=== PATIENT | male | born 1985 | race Caucasian/White ===

== ENCOUNTER 2019-05-31 09:07 | Emergency (ER) | payer OTHER, SELFPAY ==
[2019-05-31 09:30] VITALS: BP 145/88; PULSE 75; RESP 20; TEMP 36.6; O2SAT 98
--- NOTE | 2019-05-31 09:39 | ED.EAR ---
HPI - Ear Problem General Chief complaint: Ear Stated complaint: Poss Ear Infection Time Seen by Provider: 05/31/19 09:39 Source: patient and family Mode of arrival: ambulatory History of Present Illness HPI Narrative: Patient presents with bilateral ear pain and the feeling of fullness in both ears. Patient denies any fever no shortness of breath and no cough. Patient states last week he had nasal congestion and drainage which has since resolved. Patient denies any sore throat. Patient states he is a normally healthy individual. Patient has not taken thing [id number] for symptoms. MD Complaint: ear pain Location: bilateral Duration: constant Severity: mild Related Data Allergies Allergy/AdvReac Type Severity Reaction Status Date / Time No Known Allergies Allergy Unverified 05/31/19 09:43 Review of Systems Review of Systems: Narrative: CONSTITUTIONAL: Denies fever, chills, or sweats. EYES: Denies visual changes, redness, or discharge. ENT: Denies rhinorrhea, congestion, sore throat, reports ear pain CARDIOVASCULAR: Denies chest pain, palpitations, or edema. RESPIRATORY: Denies cough or dyspnea. GASTROINTESTINAL: Denies abdominal pain, nausea, vomiting, or diarrhea. GENITOURINARY: Denies dysuria or hematuria. SKIN: Denies rash or itching. MUSCULOSKELETAL: Denies back pain, joint pain, or myalgia. NEUROLOGIC: Denies headache, numbness, or weakness. PSYCHIATRIC: Denies anxiety or depression. PMFSH Comments At time of signature, agree with nursing past medical, surgical, social and family history. There is no relevant family history pertinent to the presenting complaint Exam Narrative: Exam Narrative: GENERAL: Well-appearing, well-nourished, and in no acute distress. HEAD: Normocephalic, atraumatic. EYES: PERRLA and EOMI. ENT: Nares clear, no rhinorrhea or epistaxis. Mucous membranes moist. Bilateral erythremia to both canals bilateral TM dullness mild postnasal drainage NECK: Supple. CHEST: Clear to auscultation. No respiratory distress. HEART: Regular rate and rhythm. No murmur heard. Normal peripheral pulses. ABDOMEN: Soft, nontender, nondistended, normal active bowel sounds. EXTREMITIES: Normal range of motion. No edema. SKIN: Warm, dry, no rash. NEURO: No focal deficits. Alert and oriented x3. [place] Coma Scale Eye Opening: Spontaneous 4 [place] Coma Scale Motor: Obeys Commands 6 [place] Coma Scale Verbal: Oriented 5 [place] Coma Scale Total 15 Course Vital Signs Vital signs: Vital Signs Temperature 36.6 C 05/31/19 09:30 Pulse Rate 75 05/31/19 09:30 Respiratory Rate 20 05/31/19 09:30 Blood Pressure 145/88 H 05/31/19 09:30 Pulse Oximetry 98 05/31/19 09:30 Temperature 36.6 C 05/31/19 09:30 Pulse Rate 75 05/31/19 09:30 Respiratory Rate 20 05/31/19 09:30 Blood Pressure 145/88 H 05/31/19 09:30 Pulse Oximetry 98 05/31/19 09:30 Please CATY schedule a followup visit with your personal physician for further evaluation and treatment. Including recheck and discussion of your blood pressure. If your symptoms persist, change or worsen significantly before you can contact your personal physician then please, without delay, go to the emergency department for further evaluation Medical Decision Making Differential Diagnosis Differential Diagnosis: Otitis media, otitis externa, eustachian tube dysfunction, upper respiratory infection, sinusitis Vital Signs Vital Signs: Vital Signs Temperature 36.6 C 05/31/19 09:30 Pulse Rate 75 05/31/19 09:30 Respiratory Rate 05/31/19 09:30 Blood Pressure 145/88 H 05/31/19 09:30 Pulse Oximetry 98 05/31/19 09:30 Temperature 36.6 C 05/31/19 09:30 Pulse Rate 75 05/31/19 09:30 Respiratory Rate 05/31/19 09:30 Blood Pressure 145/88 H 05/31/19 09:30 Pulse Oximetry 98 05/31/19 09:30 Please [facility] schedule a followup visit with your personal physician for further evaluation and treatment. Including recheck and
== END 2019-05-31 09:49 | disposition home or self-care (01) ==
PROVIDERS: Emergency Provider Nurse Practitioner Family; PCP Internal Medicine
DX: H66.003 Acute suppurative otitis media without spontaneous rupture of ear drum, bilateral (principal)
CPT/HCPCS: 99213; G0463

== ENCOUNTER 2019-09-13 13:00 | Emergency (ER) | payer OTHER, SELFPAY ==
[2019-09-13 13:05] VITALS: BP 144/91; PULSE 106; RESP 20; TEMP 36.6; O2SAT 100
--- NOTE | 2019-09-13 13:08 | ED.URI ---
HPI - URI/Sore Throat General Chief Complaint: Upper Respiratory Infection Stated Complaint: sinus drainage/headache/chills Time Seen by Provider: 09/13/19 13:08 Source: patient and RN notes reviewed History of Present Illness HPI Narrative: Patient is a 33-year-old male that presents the urgent care with complaints of sinus drainage, intermittent chills and headache. Patient states that he has had some facial pressure due to sinus drainage. Denies of any sore throat, nausea, vomiting, fever. Patient states his symptoms started yesterday and he knows these are typical due to weather change . Patient is requesting a work release because he did not go to work. Patient is aware that work release notes are not available at this time due to inability to rule out coronavirus. Patient is also aware that there is no necessary need for coronavirus testing based on his symptoms at this time. Patient is use Tylenol and ibuprofen for the headaches, which have improved. Otherwise, patient has not used anything stad-cyr-cqmktby for his symptoms. No other acute complaints. No acute distress noted. Patient read the plan of care. Related Data Home Medications Medication Instructions Recorded Confirmed No Home Medications 09/13/19 09/13/19 Allergies Allergy/AdvReac Type Severity Reaction Status Date / Time No Known Allergies Allergy Verified 09/13/19 13:16 Review of Systems Review of Systems: Narrative: CONSTITUTIONAL: Reports of chills without known fever EYES: Denies visual changes, redness, or discharge. ENT: Reports of rhinorrhea, congestion, sinus pressure CARDIOVASCULAR: Denies chest pain, palpitations, or edema. RESPIRATORY: Denies cough or dyspnea. GASTROINTESTINAL: Denies abdominal pain, nausea, vomiting, or diarrhea. GENITOURINARY: Denies dysuria or hematuria. SKIN: Denies rash or itching. MUSCULOSKELETAL: Denies back pain, joint pain, or myalgia. NEUROLOGIC: Reports of intermittent headaches All other systems reviewed are negative, except as documented in HPI. PMFSH Comments At the time of my signature, I reviewed and agree with the nursing past medical, surgical, social, and family history. There is no relevant family history pertinent to the patient complaint. Exam Narrative: Exam Narrative: GENERAL: This is a well-nourished, well-developed patient, in no apparent distress. HEAD: normocephalic, atraumatic. EYES: PERRL. Sclera clear/white. Vision is grossly intact. EARS: External ears normal, auditory canals clear and without drainage, TMs normal without perforation. Hearing grossly intact. NOSE: External nose normal with no obvious nasal discharge, nares without redness, no rhinorrhea. THROAT: Mucous membranes moist, posterior pharynx clear. Mild postnasal drainage NECK: Neck supple CARDIOVASCULAR: Regular rate and rhythm without murmurs, gallops, or rubs. RESPIRATORY: Clear to auscultation. Breath sounds equal bilaterally. No wheezes, rales, or rhonchi. SKIN: warm, intact with no suspicious lesions or rash, good texture and turgor. NEURO: awake, alert, and oriented to person, place and time. There were no obvious focal neurologic abnormalities. EXTREMITIES: No clubbing, cyanosis, or edema. Course Vital Signs Vital signs: Vital Signs Temperature 97.9 F 09/13/19 13:05 Pulse Rate 106 H 09/13/19 13:05 Respiratory Rate 20 09/13/19 13:05 Blood Pressure 144/91 H 09/13/19 13:05 Pulse Oximetry 100 09/13/19 13:05 Temperature 97.9 F 09/13/19 13:05 Pulse Rate 106 H 09/13/19 13:05 Respiratory Rate 20 09/13/19 13:05 Blood Pressure 144/91 H 09/13/19 13:05 Pulse Oximetry 100 09/13/19 13:05 Reviewed?patient is informed that they may have pre-hypertension or hypertension based on a blood pressure reading in the department. I recommend the patient call the primary care provider listed on their discharge instructions or a physician of their choice this week to arrange follow-up for further evaluati
== END 2019-09-13 13:24 | disposition home or self-care (01) ==
PROVIDERS: Emergency Provider Nurse Practitioner Family; PCP Internal Medicine
DX: J00 Acute nasopharyngitis [common cold] (principal); J01.90 Acute sinusitis, unspecified
CPT/HCPCS: 99211; G0463

== ENCOUNTER 2021-09-22 15:36 | Emergency (ER) | payer OTHER, SELFPAY ==
[2021-09-22 15:47] VITALS: BP 137/76; PULSE 85; RESP 18; TEMP 37; O2SAT 98
--- NOTE | 2021-09-22 16:27 | ED.URI ---
HPI - URI/Sore Throat General Chief Complaint: Upper Respiratory Infection Stated Complaint: Sore Throat Time Seen by Provider: 09/22/21 16:20 Source: patient, RN notes reviewed and old records reviewed Mode of arrival: ambulatory Limitations: no limitations History of Present Illness HPI Narrative: 35-year-old male who presents to [facility] with 1 day history of sore throat, some nasal congestion, denies any ear pain or any cough. Patient has been vaccinated for COVID and has had Flu shot,denies any fevers or any body aches. Patient has not taken any OTC medications for his discomfort. MD elicited complaint: sore throat Related Data Home Medications Medication Instructions Recorded Confirmed omeprazole 20 mg PO DAILY 09/22/21 09/22/21 tadalafil 20 mg PO PRN 09/22/21 09/22/21 Allergies Allergy/AdvReac Type Severity Reaction Status Date / Time No Known Allergies Allergy Verified 09/22/21 15:50 Review of Systems Review of Systems: CONSTITUTIONAL: Denies fever, chills, or sweats. EYES: Denies visual changes, redness, or discharge. ENT: Denies rhinorrhea, some nasal congestion,positive sore throat, no otalgia. CARDIOVASCULAR: Denies chest pain, palpitations, or edema. RESPIRATORY: Denies cough or dyspnea. GASTROINTESTINAL: Denies abdominal pain, nausea, vomiting, or diarrhea. GENITOURINARY: Denies dysuria or hematuria. SKIN: Denies rash or itching. MUSCULOSKELETAL: Denies back pain, joint pain, or myalgia. NEUROLOGIC: Denies headache, numbness, or weakness. PSYCHIATRIC: Denies anxiety or depression. All systems reviewed & are unremarkable except as noted in HPI and below PMFSH Past Medical History Medical History (Updated 09/23/21 @ 11:03 by Maribel Barrios NP) ADD (attention deficit disorder) GERD (gastroesophageal reflux disease) History of sinus problem Surgical History Surgical History (Updated 09/23/21 @ 11:02 by Maribel Barrios NP) History of appendectomy Social History Social History (Updated 09/23/21 @ 11:01 by Maribel Barrios NP) Smoking status: Current every day smoker Tobacco type: e-cigarettes/vaping Additional smoking assessment comments: quit cigarettes 2009 smoked 16 years Alcohol intake: current Alcohol use details: social Substance use: unknown Comments At time of signature, agree with nursing past medical, surgical, social and family history. There is no relevant family history pertinent to the presenting complaint Exam Narrative: GENERAL: Well-appearing, well-nourished,obese and in no acute distress. HEAD: Normocephalic, atraumatic. EYES: PERRLA and EOMI. ENT: Nares with mild redness clear rhinorrhea no epistaxis. Mucous membranes moist.Tm's normal with good light reflex, throat red with white exudates on acutely enlarged red tonsils NECK: Supple.lymphadenopathy CHEST: Clear to auscultation. No respiratory distress.SAO2 98% on room air, no dyspnea or any tachypnea noted. HEART: Regular rate and rhythm. No murmur heard. Normal peripheral pulses. ABDOMEN: Soft, nontender, nondistended, normal active bowel sounds. EXTREMITIES: Normal range of motion. No edema. SKIN: Warm, dry, no rash. NEURO: No focal deficits. Alert and oriented x3. Course Course Level of Care: Express Care Visit Vital Signs Vital signs: Vital Signs Temperature 37.0 C 09/22/21 15:47 Pulse Rate 85 09/22/21 15:47 Respiratory Rate 18 09/22/21 15:47 Blood Pressure 137/76 09/22/21 15:47 Pulse Oximetry 98 09/22/21 15:47 Temperature 37.0 C 09/22/21 15:47 Pulse Rate 85 09/22/21 15:47 Respiratory Rate 18 09/22/21 15:47 Blood Pressure 137/76 09/22/21 15:47 Pulse Oximetry 98 09/22/21 15:47 MDM - URI/Sore Throat Differential Diagnosis Differential diagnosis: Likely upper respiratory infection, pharyngitis and other (Exudative tonsillitis) Medical Records Attestation: I reviewed the patient's medical records. Lab Data Attestation: I reviewed the patien
== END 2021-09-22 16:45 | disposition home or self-care (01) ==
PROVIDERS: Emergency Provider Registered Nurse
DX: J03.90 Acute tonsillitis, unspecified (principal); F17.290 Nicotine dependence, other tobacco product, uncomplicated; K21.9 Gastro-esophageal reflux disease without esophagitis
CPT/HCPCS: 87081; 87880; 99213; G0463

== ENCOUNTER 2022-10-01 11:35 | Emergency (ER) | payer OTHER, SELFPAY ==
--- NOTE | ~2022-10-01 | XR_ITS ---
EXAMINATION: XR chest 2V DATE: 10/01/2022 12:33 INDICATION: Cough. Shortness of breath with exertion. TECHNIQUE: Frontal and lateral views of the chest were obtained. COMPARISON: None. FINDINGS: The chest demonstrates clear lungs without pneumonia, pleural effusion, or pneumothorax. Th e heart size is normal. IMPRESSION: 1. No acute cardiopulmonary disease. Reviewed, dictated and finalized at location A.
[2022-10-01 11:40] VITALS: BP 146/81; PULSE 78; RESP 16; TEMP 36.9; O2SAT 100
--- NOTE | 2022-10-01 11:59 | ED.URI ---
HPI - URI/Sore Throat General Chief Complaint: Upper Respiratory Infection Stated Complaint: cough/ had covid Time Seen by Provider: 10/01/22 12:14 Source: patient and RN notes reviewed Mode of arrival: ambulatory Limitations: no limitations History of Present Illness HPI Narrative: 36-year-old male presents with concern for 2 week history of postnasal drainage, productive cough, shortness of breath, headache, diarrhea. Reports his tested positive for COVID 1 week ago, he had a negative COVID test at that time. Reports he has been taking several hnha-eby-[id number] medications without relief. Reports he vapjay VALDEZ elicited complaint: cough Related Data Home Medications Medication Instructions Recorded Confirmed omeprazole 20 mg capsule,delayed 20 mg PO DAILY 09/22/21 10/01/22 release tadalafil 20 mg tablet 20 mg PO PRN 09/22/21 10/01/22 Allergies Allergy/AdvReac Type Severity Reaction Status Date / Time No Known Allergies Allergy Verified 10/01/22 11:42 Review of Systems Review of Systems: CONSTITUTIONAL: Reports malaise. Denies chills, sweats, or fever. EYES: Denies visual changes, redness, or discharge. ENT: Reports rhinorrhea, postnasal drainage. Denies congestion, sinus pain, otalgia and sore throat. CARDIOVASCULAR: Denies chest pain, palpitations, or edema. RESPIRATORY: Reports productive cough, occasional dyspnea, mid back pain with coughing. GASTROINTESTINAL: Denies abdominal pain, nausea, vomiting. Reports diarrhea SKIN: Denies rash or itching. MUSCULOSKELETAL: Denies myalgia. NEUROLOGIC: Reports headache. All systems reviewed & are unremarkable except as noted in HPI and below PMFSH Past Medical History Medical History (Updated 10/01/22 @ 12:43 by Dedra Al NP) ADD (attention deficit disorder) GERD (gastroesophageal reflux disease) History of sinus problem Surgical History Surgical History (Updated 09/23/21 @ 11:02 by Maribel Barrios NP) History of appendectomy Social History Social History (Updated 09/23/21 @ 11:01 by Maribel Barrios NP) Smoking status: Current every day smoker Tobacco type: e-cigarettes/vaping Additional smoking assessment comments: quit cigarettes 2009 smoked 16 years Alcohol intake: current Alcohol use details: social Substance use: unknown Comments At time of signature, agree with nursing past medical, surgical, social and family history. There is no relevant family history pertinent to the presenting complaint Exam Narrative: GENERAL: Nontoxic appearing and in no acute distress. HEAD: Normocephalic EYES: PERRLA, conjunctivae clear ENT: Nares clear, turbinates edematous and erythematous. Mucous membranes moist. TM pearly beasley with dull light reflex bilaterally; no tragal tenderness. Oropharynx erythematous without lesions. Tonsils not enlarged and without exudate, no drooling, no hoarseness, no trismus, uvula midline. NECK: Supple. No lymphadenopathy CHEST: Clear to auscultation, breath sounds equal. No wheezing, rhonchi, rales, or stridor. No respiratory distress, speaks in full sentences. Cough noted HEART: Regular rate and rhythm. No murmur heard. SKIN: Warm, dry, no rash. NEURO: Alert and oriented x3. PSYCH: Normal mood and affect Course Course Emergency Course: Patient is aware of diagnosis, understands and agrees to treatment plan. Anticipatory guidance given. Patient agrees to follow-up as directed and is aware of reasons to seek care at the emergency department. Portions of this record may have been created with voice recognition software Level of Care: Express Care Visit Vital Signs Vital signs: Vital Signs Temperature 98.4 F 10/01/22 11:40 Pulse Rate 78 10/01/22 11:40 Respiratory Rate 16 10/01/22 11:40 Blood Pressure 146/81 H 10/01/22 11:40 Pulse Oximetry 100 10/01/22 11:40 Oxygen Delivery Room Air 10/01/22 11:40 Temperature 98.4 F 10/01/22 11:40 Pulse Rate 78
== END 2022-10-01 12:45 | disposition home or self-care (01) ==
PROVIDERS: Emergency Provider Nurse Practitioner; PCP Physician Assistant
DX: J32.9 Chronic sinusitis, unspecified (principal); J40 Bronchitis, not specified as acute or chronic; Z20.822 Contact with and (suspected) exposure to COVID-19; F17.290 Nicotine dependence, other tobacco product, uncomplicated; K21.9 Gastro-esophageal reflux disease without esophagitis
CPT/HCPCS: 71046; 87081; 87426; 87804; 87880; 99213; C9803; G0463

== ENCOUNTER 2022-11-03 13:25 | Emergency (ER) | payer OTHER, SELFPAY ==
[2022-11-03 13:39] VITALS: BP 153/84; PULSE 73; RESP 16; TEMP 37.3; O2SAT 98
--- NOTE | 2022-11-03 13:47 | ED.SKABFB ---
HPI - Skin/Abscess/Foreign Bdy General Chief complaint: Skin/Abscess/Foreign Body Stated complaint: blisters on right hand Source: patient and RN notes reviewed History of Present Illness HPI narrative: 36-year-old male presents to urgent care with complaints of 3 blisters to his right hand. Patient states he obtained these blisters by opening plastic, 2 L, soda bottles on Thursday night. Pt states he had a collection of them and he was opening them, some harder to open than others. Pt is also reporting some swelling to the area of his right hand. Denies any fevers, chills, vomiting, or other complaints. Patient has applied triple antibiotic ointment to the areas. Related Data Home Medications Medication Instructions Recorded Confirmed omeprazole 20 mg capsule,delayed 20 mg PO DAILY 09/22/21 10/01/22 release tadalafil 20 mg tablet 20 mg PO PRN 09/22/21 10/01/22 Allergies Allergy/AdvReac Type Severity Reaction Status Date / Time No Known Allergies Allergy Verified 10/01/22 11:42 Review of Systems Review of Systems: CONSTITUTIONAL: Denies fever, chills, or sweats. EYES: Denies visual changes, redness, or discharge. ENT: Denies otalgia and sore throat CARDIOVASCULAR: Denies chest pain, palpitations, or edema. RESPIRATORY: Denies cough or dyspnea. GASTROINTESTINAL: Denies abdominal pain, nausea, vomiting, or diarrhea. GENITOURINARY: Denies dysuria or hematuria. SKIN: Blisters right hand MUSCULOSKELETAL: Denies back pain, joint pain, or myalgia. NEUROLOGIC: Denies headache, numbness, or weakness. Pertinent positives per HPI. [facility] Past Medical History Medical History (Updated 11/03/22 @ 13:49 by Yamel Lua APRN) ADD (attention deficit disorder) GERD (gastroesophageal reflux disease) History of sinus problem Surgical History Surgical History (Updated 09/23/21 @ 11:02 by Maribel Barrios NP) History of appendectomy Social History Social History (Updated 09/23/21 @ 11:01 by Maribel Barrios NP) Smoking status: Current every day smoker Tobacco type: e-cigarettes/vaping Additional smoking assessment comments: quit cigarettes 2009 smoked 16 years Alcohol intake: current Alcohol use details: social Substance use: unknown Comments At the time of my signature, I reviewed and agree with the nursing past medical, surgical, social, and family history. There is no relevant family history pertinent to the patient complaint. Exam Narrative: GENERAL: This is a well-nourished, well-developed patient, in no apparent distress. HEAD: normocephalic, atraumatic. EYES: Sclera clear/white. Vision is grossly intact. EARS: External ears normal, auditory canals clear and without drainage. Hearing grossly intact. NOSE: External nose normal with no obvious nasal discharge, nares without redness, no rhinorrhea. THROAT: Mucous membranes moist, posterior pharynx clear. NECK: Neck supple, non-tender without lymphadenopathy, masses or thyromegaly. CARDIOVASCULAR: Regular rate RESPIRATORY: No respiratory distress SKIN: 3 lesions to right palmar hand, located to volar side of thumb and and 2 to thenar aspect. no drainage or surrounding erythema. each lesion appears to be approximately 1-1.5 cm, consistent to open blisters. NEURO: awake, alert, and oriented to person, place and time. There were no obvious focal neurologic abnormalities. EXTREMITIES: Mild swelling to right thumb and thenar aspect of hand. Course Course Level of Care: Express Care Visit Vital Signs Vital signs: Vital Signs Temperature 99.2 F 11/03/22 13:39 Pulse Rate 73 11/03/22 13:39 Respiratory Rate 16 11/03/22 13:39 Blood Pressure 153/84 H 11/03/22 13:39 Pulse Oximetry 98 11/03/22 13:39 Oxygen Delivery Room Air 11/03/22 13:39 Temperature 99.2 F 11/03/22 13:39 Pulse Rate 73 11/03/22 13:39 Respiratory Rate 16 11/03/22 13:39 Blood Pressure 153/84 H 11/03/22 13:39 Pulse Oximetry 98
== END 2022-11-03 13:56 | disposition home or self-care (01) ==
PROVIDERS: Emergency Provider Nurse Practitioner Family; PCP Physician Assistant
DX: S60.521A Blister (nonthermal) of right hand, initial encounter (principal); X58.XXXA Exposure to other specified factors, initial encounter; K21.9 Gastro-esophageal reflux disease without esophagitis; F17.290 Nicotine dependence, other tobacco product, uncomplicated
CPT/HCPCS: 99213; G0463

== ENCOUNTER 2022-12-16 13:37 | Emergency (ER) | payer OTHER, SELFPAY ==
[2022-12-16 13:47] VITALS: BP 143/89; PULSE 99; RESP 16; TEMP 36.7; O2SAT 100
--- NOTE | 2022-12-16 14:26 | ED.GENADULT ---
HPI - General Adult General Chief complaint: Upper Respiratory Infection Stated complaint: Vomiting,Diarrhea,Headache Source: patient Mode of arrival: ambulatory Limitations: no limitations History of Present Illness HPI narrative: Patient presents for evaluation of sick symptoms. Symptom onset yesterday. Symptoms include body aches, nausea, 1 episode of vomiting, diarrhea, generalized body aches, mild SOB, and occasional cough. Denies sore throat and otalgia. His partner has similar symptoms. He does use an electronic cigarette. He denies other concerns. Related Data Home Medications Medication Instructions Recorded Confirmed omeprazole 20 mg capsule,delayed 20 mg PO DAILY 09/22/21 12/16/22 release tadalafil 20 mg tablet 20 mg PO PRN 09/22/21 12/16/22 Allergies Allergy/AdvReac Type Severity Reaction Status Date / Time No Known Allergies Allergy Verified 10/01/22 11:42 Review of Systems Review of Systems: CONSTITUTIONAL: Denies fever, chills, or sweats. EYES: Denies visual changes, redness, or discharge. ENT: Reports sore throat. denies rhinorrhea, congestion, or otalgia. CARDIOVASCULAR: Denies chest pain, palpitations, or edema. RESPIRATORY: Reports shortness of breath and occasional cough GASTROINTESTINAL: Reports nausea, 1 episode of vomiting, diarrhea GENITOURINARY: Denies dysuria or hematuria. SKIN: Denies rash or itching. MUSCULOSKELETAL: Reports generalized body ache NEUROLOGIC: Denies headache, numbness, dizziness, or weakness. PSYCHIATRIC: Denies anxiety or depression. [facility] Past Medical History Medical History ADD (attention deficit disorder) GERD (gastroesophageal reflux disease) History of sinus problem Surgical History Surgical History History of appendectomy Family History Family History Mother Family history non-contributory Social History Social History Smoking status: Current every day smoker Tobacco type: e-cigarettes/vaping Additional smoking assessment comments: quit cigarettes 2009 smoked 16 years Alcohol intake: current Alcohol use details: social Substance use: unknown Gender identity (if verbalized by the patient): Male Exam Narrative: GENERAL: Well-appearing, well-nourished, and in no acute distress. HEAD: Normocephalic, atraumatic. EYES: PERRLA and EOMI. ENT: Nares clear, no rhinorrhea or epistaxis. Mucous membranes moist. Oropharynx without tonsillar hypertrophy exudate or other lesions. Bilateral TMs pearly beasley nonbulging NECK: Supple. No adenopathy or masses. No carotid bruits or JVD CHEST: Clear to auscultation. No respiratory distress. No wheezes rales or rhonchi HEART: Regular rate and rhythm. No murmur heard. Normal peripheral pulses. ABDOMEN: Soft, nontender, nondistended, normal active bowel sounds. EXTREMITIES: Normal range of motion. No edema. SKIN: Warm, dry, no rash. NEURO: No focal deficits. Alert and oriented x3. PSYCH: Normal mood and affect. Course Course Emergency Course: This is a 37-year-old male presented for evaluation of sick symptoms. Testing here today was negative. Exam is consistent with acute viral syndrome. Increase hydration. Yvju-mwv-votnptb agents for symptom management. Advised smoking cessation. Follow up with primary provider. Go to the ER for worsening symptoms. Patient in agreement with plan of care. Level of Care: Express Care Visit Vital Signs Vital signs: Vital Signs Temperature 36.7 C 12/16/22 13:47 Pulse Rate 99 12/16/22 13:47 Respiratory Rate 16 12/16/22 13:47 Blood Pressure 143/89 H 12/16/22 13:47 Pulse Oximetry 100 12/16/22 13:47 Oxygen Delivery Room Air 12/16/22 13:47 Temperature 36.7 C 12/16/22 13:47 Pul
== END 2022-12-16 15:02 | disposition home or self-care (01) ==
LOC: EXPBETH 13:39
PROVIDERS: Emergency Provider Nurse Practitioner; PCP Physician Assistant
DX: B34.9 Viral infection, unspecified (principal); K21.9 Gastro-esophageal reflux disease without esophagitis; Z20.822 Contact with and (suspected) exposure to COVID-19
CPT/HCPCS: 87426; 99213; C9803; G0463

== ENCOUNTER 2022-12-31 08:26 | Emergency (ER) | payer OTHER, SELFPAY ==
[2022-12-31 08:42] VITALS: BP 130/86; PULSE 89; RESP 18; TEMP 36.6; O2SAT 100
--- NOTE | 2022-12-31 09:09 | ED.URI ---
HPI - URI/Sore Throat General Chief Complaint: Upper Respiratory Infection Stated Complaint: fever/aches/fatigue Time Seen by Provider: 12/31/22 09:09 Source: patient Mode of arrival: ambulatory Limitations: no limitations History of Present Illness HPI Narrative: 37-year-old male presents with complaint of nasal congestion, sore throat, fever, body aches, cough for 3 days. Reports fever yesterday was 102 F. Denies nausea vomiting diarrhea. No chest pain or shortness of breath. Patient reports that he missed 2 days of work and needs a work note. All systems reviewed and negative except as noted above. Related Data Home Medications Medication Instructions Recorded Confirmed omeprazole 20 mg capsule,delayed 20 mg PO DAILY 09/22/21 12/16/22 release tadalafil 20 mg tablet 20 mg PO PRN 09/22/21 12/16/22 Allergies Allergy/AdvReac Type Severity Reaction Status Date / Time No Known Allergies Allergy Verified 10/01/22 11:42 Review of Systems Review of Systems: CONSTITUTIONAL: Reports fever, chills, or sweats. EYES: Denies visual changes, redness, or discharge. ENT: Reports rhinorrhea, congestion, sore throat. Denies otalgia. CARDIOVASCULAR: Denies chest pain, palpitations, or edema. RESPIRATORY: Reports cough. Denies dyspnea. GASTROINTESTINAL: Denies abdominal pain, nausea, vomiting, or diarrhea. GENITOURINARY: Denies dysuria or hematuria. SKIN: Denies rash or itching. MUSCULOSKELETAL: Denies back pain, joint pain, or myalgia. NEUROLOGIC: Denies headache, numbness, or weakness. PSYCHIATRIC: Denies anxiety or depression. All other systems reviewed are negative, except as documented in HPI. [facility] Past Medical History Medical History ADD (attention deficit disorder) GERD (gastroesophageal reflux disease) History of sinus problem Surgical History Surgical History History of appendectomy Family History Family History Mother Family history non-contributory Social History Social History Smoking status: Current every day smoker Tobacco type: e-cigarettes/vaping Additional smoking assessment comments: quit cigarettes 2010 smoked 16 years Alcohol intake: current Alcohol use details: social Substance use: unknown Gender identity (if verbalized by the patient): Male Comments At time of signature, agree with nursing past medical, surgical, social and family history. There is no relevant family history pertinent to the presenting complaint. Exam Narrative: GENERAL: This is a well-nourished, well-developed patient, in no apparent distress. HEAD: normocephalic, atraumatic. EYES: PERRL. Sclera clear/white. Vision is grossly intact. EARS: External ears normal, auditory canals clear and without drainage, TMs normal without perforation. Hearing grossly intact. NOSE: External nose normal with clear nasal drainage, mild congestion. Mild erythema to both nares without swelling. THROAT: Mucous membranes moist, erythema to posterior pharynx without swelling or exudates. NECK: Neck supple, non-tender without lymphadenopathy, masses or thyromegaly. CARDIOVASCULAR: Regular rate and rhythm without murmurs, gallops, or rubs. RESPIRATORY: Clear to auscultation. Breath sounds equal bilaterally. No wheezes, rales, or rhonchi. SKIN: warm, Dry, intact with no suspicious lesions or rash, good texture and turgor. NEURO: awake, alert, and oriented to person, place and time. There were no obvious focal neurologic abnormalities. EXTREMITIES: No joint tenderness, effusion, or edema noted. Course Course Level of Care: Express Care Visit Vital Signs Vital signs: Vital Signs Temperature 36.6 C 12/31/22 08:42 Pulse Rate 89 12/31/22 08:42 Respiratory Rate 18
== END 2022-12-31 09:24 | disposition home or self-care (01) ==
PROVIDERS: Emergency Provider Nurse Practitioner Family; PCP Physician Assistant
DX: J06.9 Acute upper respiratory infection, unspecified (principal); Z20.822 Contact with and (suspected) exposure to COVID-19; F17.290 Nicotine dependence, other tobacco product, uncomplicated; K21.9 Gastro-esophageal reflux disease without esophagitis
CPT/HCPCS: 87081; 87426; 87880; 99213; C9803; G0463

== ENCOUNTER 2023-01-12 08:54 | Emergency (ER) | payer OTHER, SELFPAY ==
[2023-01-12 09:26] VITALS: BP 142/92; PULSE 74; RESP 20; TEMP 36.9; O2SAT 98
--- NOTE | 2023-01-12 09:57 | ED.URI ---
HPI - URI/Sore Throat General Chief Complaint: Upper Respiratory Infection Stated Complaint: cough Source: patient and RN notes reviewed History of Present Illness HPI Narrative: 37 yo M presents to urgent care with complaints of a productive cough and congestion x 2 weeks. Pt reports sinus pressure and BOLDEN. Denies any fevers, chills, vomiting, chest pain, or SOB. Pt has been taking mucinex, humidifiers, and other OTC meds without relief. Related Data Home Medications Medication Instructions Recorded Confirmed omeprazole 20 mg capsule,delayed 20 mg PO DAILY 09/22/21 01/12/23 release tadalafil 20 mg tablet 20 mg PO PRN 09/22/21 01/12/23 Allergies Allergy/AdvReac Type Severity Reaction Status Date / Time No Known Allergies Allergy Verified 10/01/22 11:42 Review of Systems Review of Systems: Pertinent positives and pertinent negatives per HPI. [facility] Past Medical History Medical History ADD (attention deficit disorder) GERD (gastroesophageal reflux disease) History of sinus problem Surgical History Surgical History History of appendectomy Family History Family History Mother Family history non-contributory Social History Social History Smoking status: Current every day smoker Tobacco type: e-cigarettes/vaping Additional smoking assessment comments: quit cigarettes 2010 smoked 16 years Alcohol intake: current Alcohol use details: social Substance use: unknown Gender identity (if verbalized by the patient): Male Comments At the time of my signature, I reviewed and agree with the nursing past medical, surgical, social, and family history. There is no relevant family history pertinent to the patient complaint. Exam Narrative: GENERAL: This is a well-nourished, well-developed patient, in no apparent distress. HEAD: normocephalic, atraumatic. EYES: Sclera clear/white. Vision is grossly intact. EARS: External ears normal, auditory canals clear and without drainage, TMs normal without perforation. Hearing grossly intact. NOSE: External nose normal with no obvious nasal discharge, nares without redness, no rhinorrhea. THROAT: Mucous membranes moist, posterior pharynx clear. NECK: Neck supple, non-tender without lymphadenopathy, masses or thyromegaly. CARDIOVASCULAR: Regular rate and rhythm without murmurs, gallops, or rubs. RESPIRATORY: Clear to auscultation. Breath sounds equal bilaterally. No wheezes, rales, or rhonchi. SKIN: warm, intact with no suspicious lesions or rash, good texture and turgor. NEURO: awake, alert, and oriented to person, place and time. There were no obvious focal neurologic abnormalities. EXTREMITIES: No clubbing, cyanosis, or edema. No joint tenderness, effusion, or edema noted. BACK: Nontender without deformity or crepitus. No flank tenderness. Course Course Level of Care: Express Care Visit Vital Signs Vital signs: Vital Signs Temperature 98.5 F 01/12/23 09:26 Pulse Rate 74 01/12/23 09:26 Respiratory Rate 20 01/12/23 09:26 Blood Pressure 142/92 H 01/12/23 09:26 Pulse Oximetry 98 01/12/23 09:26 Oxygen Delivery Room Air 01/12/23 09:26 Temperature 98.5 F 01/12/23 09:26 Pulse Rate 74 01/12/23 09:26 Respiratory Rate 20 01/12/23 09:26 Blood Pressure 142/92 H 01/12/23 09:26 Pulse Oximetry 98 01/12/23 09:26 Oxygen Delivery Room Air 01/12/23 09:26 reviewed MDM - URI/Sore Throat MDM Narrative Medical decision making narrative: Will treat pt with Abx today due to length of time of pt's symptoms with no relief. Will give Augmentin and Flonase. Go to the ER for any new or worsening symptoms. Avoid smoking/second-hand smoke. Continue to take Tylenol or Motrin for pain. I
== END 2023-01-12 10:13 | disposition home or self-care (01) ==
PROVIDERS: Emergency Provider Nurse Practitioner Family; PCP Physician Assistant
DX: J32.9 Chronic sinusitis, unspecified (principal); F17.290 Nicotine dependence, other tobacco product, uncomplicated; K21.9 Gastro-esophageal reflux disease without esophagitis
CPT/HCPCS: 99213; G0463

== ENCOUNTER 2023-07-09 14:02 | Emergency (ER) | payer OTHER, SELFPAY ==
[2023-07-09 14:07] VITALS: BP 159/91; PULSE 72; RESP 16; TEMP 36.8; O2SAT 100
[2023-07-09 14:10] VITALS: BP 159/91; PULSE 72; RESP 16; TEMP 36.8; O2SAT 100
--- NOTE | 2023-07-09 14:15 | ED.GENADULT ---
HPI - General Adult General Chief complaint: Upper Respiratory Infection Stated complaint: Sore Throat/Cough Source: patient, RN notes reviewed and old records reviewed Mode of arrival: ambulatory Limitations: no limitations History of Present Illness HPI narrative: 37-year-old male patient presents to [facility] with complaints cough, congestion, sore throat this started over a week. Patient states has been taking [id number] medications in symptoms or worsening. Patient states not as productive with green phlegm production. Related Data Home Medications Medication Instructions Recorded Confirmed omeprazole 20 mg capsule,delayed 20 mg PO DAILY 09/22/21 07/09/23 release tadalafil 20 mg tablet 20 mg PO PRN 09/22/21 07/09/23 carvedilol 6.25 mg tablet 6.25 mg PO BID 07/09/23 07/09/23 Allergies Allergy/AdvReac Type Severity Reaction Status Date / Time No Known Allergies Allergy Verified 10/01/22 11:42 Review of Systems Constitutional: Constitutional: Reports no additional constitutional complaints, Denies body ache(s), Denies chills, Denies fatigue, Denies fever(s) and Denies headache(s) Eyes: Eyes: Reports no additional eye complaints and Denies blurry vision ENT: Reports system reviewed and no additional complaints, except as documented, Denies vertigo, Denies dizziness, Denies ear discharge, Denies otalgia, Denies facial pain, Denies headache(s), Reports nasal congestion, Denies nasal discharge, Denies sinus pain, Denies sinus pressure and Reports sore throat Cardiovascular: Cardiovascular: Reports no additional cardiovascular complaints, Denies chest pain, Denies chest pain at rest, Denies rapid heart rate and Denies dyspnea Respiratory: Respiratory: Reports no additional respiratory complaints, Reports chest congestion, Reports cough, Denies pain on inspiration, Denies pain with cough and Denies dyspnea Gastrointestinal: Gastrointestinal: Denies abdominal pain, Denies diarrhea, Denies nausea and Denies vomiting Integumentary/Breasts: Skin/Breast: Denies rash Neurologic: Reports system reviewed and no additional complaints, except as documented, Denies vertigo, Denies dizziness and Denies headache(s) Endocrine: Endocrine: Denies fatigue PMF Past Medical History Medical History ADD (attention deficit disorder) GERD (gastroesophageal reflux disease) History of sinus problem Surgical History Surgical History History of appendectomy Family History Family History Mother Family history non-contributory Social History Social History Smoking status: Current every day smoker Tobacco type: e-cigarettes/vaping Additional smoking assessment comments: quit cigarettes 2010 smoked 16 years Alcohol intake: current Alcohol use details: social Substance use: unknown Gender identity (if verbalized by the patient): Male Comments At the time of my signature, I reviewed and agree with the nursing past medical, surgical, social, and family history. There is no relevant family history pertinent to the patient complaint. Exam Const: General: cooperative, healthy appearing, no acute distress and well nourished Nutritional Appearance: well nourished Orientation/consciousness: patient oriented x3 Limitations: no limitations HENMT: Head: normal to inspection and normocephalic Ears: external ears normal, TM's normal bilaterally, EAC's normal and mastoids normal Face/Nose/Sinus: normal facial exam Face and sinus: normal facial exam Mouth: Yes Normal oral and palatal mucosa present, Yes oropharynx normal and Yes moist mucous membranes Throat: tonsils normal, uvula midline, normal tonsils, no peritonsillar masses, posterior oropharynx abnormal erythema, postnasal drainage and no uvu
== END 2023-07-09 14:22 | disposition home or self-care (01) ==
PROVIDERS: Emergency Provider Registered Nurse; PCP Physician Assistant
DX: J06.9 Acute upper respiratory infection, unspecified (principal); F17.290 Nicotine dependence, other tobacco product, uncomplicated; K21.9 Gastro-esophageal reflux disease without esophagitis
CPT/HCPCS: 99213; G0463

== ENCOUNTER 2023-08-25 11:07 | Emergency (ER) | payer OTHER, SELFPAY ==
[2023-08-25 11:13] VITALS: BP 134/87; PULSE 76; RESP 20; TEMP 36.5; O2SAT 100
--- NOTE | 2023-08-25 11:25 | ED.URI ---
HPI - URI/Sore Throat General Chief Complaint: Upper Respiratory Infection Stated Complaint: Sore Throat Time Seen by Provider: 08/25/23 11:27 Source: patient, RN notes reviewed and old records reviewed Mode of arrival: ambulatory Limitations: no limitations History of Present Illness HPI Narrative: 37 year old male who presents to [facility] care with complaints of sore throat since yesterday and fever of 101F this morning. Patient reports that he took Tylenol this morning for his temperature with patient afebrile at presemt toe. He reports that his daughter has strep throat at present time. He states that his throat is scratchy and feels raw, he does have some history of sinus allergies and takes daily Claritin and also uses Flonase nasal spray. Patient reports no cough or feelings of dyspnea, denies any body aches or any headache pain. MD elicited complaint: sore throat Onset (ago): day(s) (since yesterday) Pain scale (0-10): 4 Description of mucous: clear Able to tolerate fluids by mouth: Yes Treatments prior to arrival: acetaminophen and other (Claritin and also Flonase nasal spray) Related Data Home Medications Medication Instructions Recorded Confirmed loratadine 10 mg tablet (Claritin) 10 mg PO DAILY 08/25/23 08/25/23 Allergies Allergy/AdvReac Type Severity Reaction Status Date / Time No Known Allergies Allergy Verified 08/25/23 11:27 Review of Systems Review of Systems: CONSTITUTIONAL: Reports malaise, chills, sweats, or fever. EYES: Denies visual changes, redness, or discharge. ENT: Reports rhinorrhea, congestion,no sinus pain, no otalgia and positive for sore throat. CARDIOVASCULAR: Denies chest pain, palpitations, or edema. RESPIRATORY: Reports no cough.? Denies dyspnea. GASTROINTESTINAL: Denies abdominal pain, nausea, vomiting, diarrhea SKIN: Denies rash or itching. MUSCULOSKELETAL: Denies myalgia. NEUROLOGIC: Denies headache. All systems reviewed & are unremarkable except as noted in HPI and below PMFSH Past Medical History Medical History (Updated 08/26/23 @ 14:31 by Maribel Barrios NP) Acquired lymphedema of lower extremity ADD (attention deficit disorder) GERD (gastroesophageal reflux disease) History of sinus problem Surgical History Surgical History History of appendectomy Family History Family History Mother Family history non-contributory Social History Social History Smoking status: Current every day smoker Tobacco type: e-cigarettes/vaping Additional smoking assessment comments: quit cigarettes 2009 smoked 16 years Alcohol intake: current Alcohol use details: social Substance use: unknown Gender identity (if verbalized by the patient): Male Comments At time of signature, agree with nursing past medical, surgical, social and family history. There is no relevant family history pertinent to the presenting complaint Exam Narrative: GENERAL: Well-appearing, well-nourished, obese and in no acute distress. HEAD: Normocephalic EYES: PERRLA, conjunctivae clear ENT: Nares clear, turbinates edematous and erythematous, clear discharge. Mucous membranes moist. TM pearly beasley with dull light reflex bilaterally; no tragal tenderness. Oropharynx erythematous without lesions. Tonsils red enlarged and without exudate, no drooling, no hoarseness, no trismus, uvula midline.some post nasal drainage NECK: Supple. No lymphadenopathy CHEST: Clear to auscultation, breath sounds equal. No wheezing, rhonchi, rales, or stridor. No respiratory distress, speaks in full sentences.no cough noted SAO2 100% on room air HEART: Regular rate and rhythm. No murmur heard. SKIN: Warm, dry, no rash. NEURO: Alert and oriented x3. PSYCH: Normal mood and affect Course Course Emergency Course:
== END 2023-08-25 12:00 | disposition home or self-care (01) ==
PROVIDERS: Emergency Provider Registered Nurse; PCP Physician Assistant
DX: J03.90 Acute tonsillitis, unspecified (principal); Z20.818 Contact with and (suspected) exposure to other bacterial communicable diseases; F17.290 Nicotine dependence, other tobacco product, uncomplicated; K21.9 Gastro-esophageal reflux disease without esophagitis
CPT/HCPCS: 87081; 87880; 99213; G0463

== ENCOUNTER 2023-11-02 08:28 | Emergency (ER) | payer OTHER, SELFPAY ==
[2023-11-02 08:36] VITALS: BP 139/81; PULSE 86; RESP 16; TEMP 37.2; O2SAT 98
--- NOTE | 2023-11-02 09:15 | ED.URI ---
HPI - URI/Sore Throat General Chief Complaint: Upper Respiratory Infection Stated Complaint: fever/cough/throat Time Seen by Provider: 11/02/23 09:02 Source: patient, RN notes reviewed and old records reviewed Mode of arrival: ambulatory Limitations: no limitations History of Present Illness HPI Narrative: 37-year-old male to Express Care with complaint of fever up to 101, sore throat, productive cough with white to yellow sputum. Patient has attempted to treat at home with Tylenol Sinus and ibuprofen without relief. Patient denies allergies to medications, difficulty breathing, chest pain, ear discomfort, GI complaints. Patient able to tolerate fluids by mouth. Respirations even and nonlabored. Patient able to speak in full sentences without difficulty. Patient in no acute distress. Related Data Allergies Allergy/AdvReac Type Severity Reaction Status Date / Time No Known Allergies Allergy Verified 08/25/23 11:27 Review of Systems Review of Systems: All systems reviewed & are unremarkable except as noted in HPI and below Constitutional: Constitutional: Reports as per HPI and Reports fever(s) Eyes: Eyes: Reports no additional eye complaints ENT: Reports as per HPI and Reports sore throat Cardiovascular: Cardiovascular: Reports no additional cardiovascular complaints, Denies chest pain and Denies dyspnea Respiratory: Respiratory: Reports no additional respiratory complaints, Reports cough and Denies dyspnea Musculoskeletal: Musculoskeletal: Reports no additional musculoskeletal complaints Neurologic: Reports system reviewed and no additional complaints, except as documented Psychiatric: Psychiatric: Reports no additional psychiatric complaints PMFSH Past Medical History Medical History Acquired lymphedema of lower extremity ADD (attention deficit disorder) GERD (gastroesophageal reflux disease) History of sinus problem Surgical History Surgical History History of appendectomy Family History Family History Mother Family history non-contributory Social History Social History Smoking status: Current every day smoker Tobacco type: e-cigarettes/vaping Additional smoking assessment comments: quit cigarettes 2009 smoked 16 years Alcohol intake: current Alcohol use details: social Substance use: unknown Gender identity (if verbalized by the patient): Male Comments At the time of my signature, I reviewed and agree with the nursing past medical, surgical, social, and family history. There is no relevant family history pertinent to the patient complaint. Exam Const: General: cooperative, no acute distress, alert, ill appearing acutely, tired appearing, uncomfortable and well nourished Nutritional Appearance: well nourished Orientation/consciousness: patient oriented x3 Limitations: no limitations HENMT: Head: normal to inspection Ears: Abnormal EAC present erythema bilateral and diffuse Face/Nose/Sinus: Normal external nose present, Normal nares present, normal facial exam, No erythema and No edema Face and sinus: normal facial exam, no erythema and no edema Mouth: Yes Normal oral and palatal mucosa present Throat: posterior oropharynx abnormal erythema and postnasal drainage Eyes: General: appearance normal, both eyes and all related structures Neck: Neck: normal visual inspection, full ROM and no meningeal signs Lymphatic: no lymphadenopathy noted and no lymphedema noted Chest: Chest palpation & inspection: normal inspection of the chest Resp: Effort & Inspection: normal respiratory effort and able to speak in complete sentences Auscultation: clear to auscultation bilaterally Cardio: Jugular venous distension: no JVD Rate: regular rate Rhythm: reg
[2023-11-02 10:25] LABS: EDSTREPNEGPOS1 Presumptive Negative
== END 2023-11-02 09:38 | disposition home or self-care (01) ==
PROVIDERS: Emergency Provider Nurse Practitioner Family; PCP Physician Assistant
DX: J06.9 Acute upper respiratory infection, unspecified (principal); K21.9 Gastro-esophageal reflux disease without esophagitis
CPT/HCPCS: 87081; 87880; 99213; G0463

== ENCOUNTER 2023-12-09 12:52 | Emergency (ER) | payer OTHER, SELFPAY ==
[2023-12-09 13:07] VITALS: BP 135/75; PULSE 71; RESP 14; TEMP 36.6; O2SAT 100
--- NOTE | 2023-12-09 13:14 | ED.NAVMDI ---
HPI - Nausea/Vomiting/Diarrhea General Chief complaint: Nausea/Vomiting/Diarrhea Stated complaint: Nausea Time Seen by Provider: 12/09/23 13:49 Source: patient and RN notes reviewed Mode of arrival: ambulatory Limitations: no limitations History of Present Illness HPI Narrative: 38-year-old male presents with concern for one-month history of nausea. Reports he had COVID 1 month ago and since then has had persistent nausea. Reports he did have vomiting and diarrhea with this started. Reports he no longer has vomiting, his last diarrhea episode was yesterday. He has history of GERD, he takes omeprazole at baseline. He denies abdominal pain. He has an appoint with his primary care doctor next week, he would like medication to help with nausea until that point. MD elicited complaint: nausea Related Data Home Medications Medication Instructions Recorded Confirmed carvedilol 6.25 mg tablet mg 12/09/23 fluticasone propionate 50 intranasal 12/09/23 mcg/actuation nasal spray,suspension loratadine 10 mg tablet mg 12/09/23 omeprazole 40 mg capsule,delayed mg 12/09/23 release Allergies Allergy/AdvReac Type Severity Reaction Status Date / Time No Known Allergies Allergy Verified 12/09/23 13:19 Review of Systems Review of Systems: CONSTITUTIONAL: Denies malaise, chills, sweats, or fever. ENT: Denies rhinorrhea, congestion, sinus pain, otalgia or sore throat. CARDIOVASCULAR: Denies chest pain, palpitations, or edema. RESPIRATORY: Denies cough or dyspnea. GASTROINTESTINAL: Denies abdominal pain, vomiting, diarrhea. Reports nausea GENITOURINARY: Denies dysuria or hematuria. MUSCULOSKELETAL: Denies myalgia. NEUROLOGIC: Denies headache. All systems reviewed & are unremarkable except as noted in HPI and below PMFSH Past Medical History Medical History Acquired lymphedema of lower extremity ADD (attention deficit disorder) GERD (gastroesophageal reflux disease) History of sinus problem Surgical History Surgical History History of appendectomy Family History Family History Mother Family history non-contributory Social History Social History (Reviewed 11/02/23 @ 09:28 by SHANEL Godinez Smoking status: Current every day smoker Tobacco type: e-cigarettes/vaping Additional smoking assessment comments: quit cigarettes 2010 smoked 16 years Alcohol intake: current Alcohol use details: social Substance use: unknown Gender identity (if verbalized by the patient): Male Comments At time of signature, agree with nursing past medical, surgical, social and family history. There is no relevant family history pertinent to the presenting complaint Exam Narrative: GENERAL: Well-appearing, well-nourished, and in no acute distress. HEAD: Normocephalic, atraumatic. EYES: PERRLA, conjunctivae clear, and EOMI. ENT: Nares clear, turbinates pink, no rhinorrhea or epistaxis. Mucous membranes moist. Oropharynx without edema, erythema, or lesions. Tonsils not enlarged and without exudate. NECK: Supple. No lymphadenopathy CHEST: Speaks in full sentences. No respiratory distress. HEART: Regular rate and rhythm. ABDOMEN: Soft, obese, nondistended, nontender. No guarding, rebound tenderness, or rigidity. No pulsatile masses. Bowel sounds present in all four quadrants. No organomegaly. Negative Sanches?s sign. No periumbilical tenderness. SKIN: Warm, dry, no rash. NEURO: Alert and oriented x3. PSYCH: Normal mood and affect Course Course Emergency Course: Patient is aware of diagnosis, understands and agrees to treatment plan. Anticipatory guidance given. Patient agrees to follow-up as directed and is aware of reasons to seek care at the emergency department. Portions of this record may have been created with v
--- NOTE | 2023-12-10 16:58 | PC.NURSE ---
called and stated rx to go to [facility]. this rn called and gave verbal order to [facility] was called back and aware rx to [facility].
== END 2023-12-09 14:06 | disposition home or self-care (01) ==
PROVIDERS: Emergency Provider Nurse Practitioner; PCP Physician Assistant
DX: R11.0 Nausea (principal); F17.290 Nicotine dependence, other tobacco product, uncomplicated; K21.9 Gastro-esophageal reflux disease without esophagitis; Z86.16 Personal history of COVID-19
CPT/HCPCS: 99213; G0463

== ENCOUNTER 2024-02-10 13:07 | Emergency (ER) | payer OTHER, SELFPAY ==
--- NOTE | ~2024-02-10 | XR_ITS ---
EXAMINATION: XR abdomen obstructive series DATE: 02/10/2024 14:18 INDICATION: Abdomen pain TECHNIQUE: Supine and upright views of the abdomen. FINDINGS: No prior studies for comparison. The visualized lung parenchyma is normal.. There is a nonobstructive bowel gas pattern. Gas and stool are seen throughout the colon to the level of the rectum. There is no free air. IMPRESSION: 1. No acute abdominal abnormality. Reviewed, dictated and finalized at location B.
[2024-02-10 13:20] VITALS: BP 129/81; PULSE 106; RESP 18; TEMP 36.4; O2SAT 100
--- NOTE | 2024-02-10 13:52 | ED.ABDPAIN ---
HPI - Abdominal Pain General Chief Complaint: Abdominal Pain Stated Complaint: diarrhea,abdominal pain Time Seen by Provider: 02/10/24 13:43 Source: patient and RN notes reviewed Mode of arrival: ambulatory Limitations: no limitations History of Present Illness HPI narrative: Patient presents today with a 3 day history of lower abdominal pain, and a 4 day history of passing small amounts of liquid stool without any passage of normal bowel movement. The abdominal pain has been intermittent. Denies blood or mucus in the stool. Denies fever. He has taken Pepto-Bismol without relief. Reports history of functional diarrhea in the past. Related Data Home Medications Medication Instructions Recorded Confirmed carvedilol 6.25 mg tablet 6.25 mg PO DAILY 12/09/23 02/10/24 fluticasone propionate 50 2 spray intranasal DAILY 12/09/23 02/10/24 mcg/actuation nasal spray,suspension loratadine 10 mg tablet 10 mg PO DAILY 12/09/23 02/10/24 omeprazole 40 mg capsule,delayed 40 mg PO DAILY 12/09/23 02/10/24 release Allergies Allergy/AdvReac Type Severity Reaction Status Date / Time No Known Allergies Allergy Verified 02/10/24 13:37 Review of Systems Review of Systems: CONSTITUTIONAL: Denies body aches, fever, chills, or sweats. EYES: Denies visual changes, redness, or discharge. ENT: Denies rhinorrhea, congestion, sore throat, or otalgia. CARDIOVASCULAR: Denies chest pain, palpitations, or edema. RESPIRATORY: Denies cough or dyspnea. GASTROINTESTINAL: Denies nausea, vomiting. + abdominal pain, constipation, liquid stool GENITOURINARY: Denies dysuria or hematuria. SKIN: Denies rash, itching, or wounds. MUSCULOSKELETAL: Denies back pain, joint pain, or myalgia. NEUROLOGIC: Denies headache, numbness, tingling, or weakness. PSYCH: Denies depression or anxiety. [facility] Past Medical History Medical History Acquired lymphedema of lower extremity ADD (attention deficit disorder) GERD (gastroesophageal reflux disease) History of sinus problem Surgical History Surgical History History of appendectomy Family History Family History Mother Family history non-contributory Social History Social History Smoking status: Current every day smoker Tobacco type: e-cigarettes/vaping Additional smoking assessment comments: quit cigarettes 2010 smoked 16 years Alcohol intake: current Alcohol use details: social Substance use: unknown Gender identity (if verbalized by the patient): Male Comments At time of signature, I have reviewed and agree with nursing past medical, surgical, social and family history unless otherwise noted. Please see nursing chart for further information. There is no relevant family history pertinent to the presenting complaint Exam Narrative: GENERAL: Well-appearing, well-nourished, and in no acute distress. HEAD: Normocephalic, atraumatic. EYES: EOMI. No redness or drainage. Conjunctivae normal. ENT: Mucous membranes pink and moist. NECK: Normal AROM. CHEST: No respiratory distress. Clear to auscultation. HEART: Regular rate and rhythm. No murmur appreciated. ABDOMEN: Soft, nontender, nondistended, sluggish bowel sounds. EXTREMITIES: Normal range of motion. No edema. SKIN: Warm, dry, no rash. Capillary refill normal. Normal skin turgor. NEURO: No focal deficits. Alert and oriented x3. Gait steady. PSYCH: Normal affect. No signs of depression or anxiety. Course Course Level of Care: Express Care Visit Vital Signs Vital signs: Vital Signs Temperature 97.5 F L 02/10/24 13:20 Pulse Rate 106 H 02/10/24 13:20 Respiratory Rate 18 02/10/24 13:20 Blood Pressure 129/81 02/10/24 13:20 Pulse Oximetry 100 02/10/24 13:20
== END 2024-02-10 14:40 | disposition home or self-care (01) ==
PROVIDERS: Emergency Provider Nurse Practitioner; PCP Physician Assistant
DX: K59.00 Constipation, unspecified (principal); F17.290 Nicotine dependence, other tobacco product, uncomplicated; K21.9 Gastro-esophageal reflux disease without esophagitis; I89.0 Lymphedema, not elsewhere classified
CPT/HCPCS: 74019; 99213; G0463

== ENCOUNTER 2024-03-14 09:45 | Emergency (ER) | payer OTHER, SELFPAY ==
[2024-03-14 09:52] VITALS: BP 132/80; PULSE 88; RESP 20; TEMP 37.1; O2SAT 100
--- NOTE | 2024-03-14 10:31 | ED.URI ---
HPI - URI/Sore Throat General Chief Complaint: Upper Respiratory Infection Stated Complaint: poss sinus infection Time Seen by Provider: 03/14/24 10:31 History of Present Illness HPI Narrative: 38-year-old male presented for complaint of nasal congestion and sinus pressure amd fatigue for over 1 week. He takes Flonase and Zyrtec on a daily basis and has added Mucinex and has had minimal relief. He denies cough, shortness of breath, wheezing nausea, vomiting, fevers or chills. Related Data Home Medications Medication Instructions Recorded Confirmed carvedilol 6.25 mg tablet 6.25 mg PO DAILY 12/09/23 02/10/24 fluticasone propionate 50 2 spray intranasal DAILY 12/09/23 02/10/24 mcg/actuation nasal spray,suspension loratadine 10 mg tablet 10 mg PO DAILY 12/09/23 02/10/24 omeprazole 40 mg capsule,delayed 40 mg PO DAILY 12/09/23 02/10/24 release Allergies Allergy/AdvReac Type Severity Reaction Status Date / Time No Known Allergies Allergy Verified 02/10/24 13:37 Review of Systems Review of Systems: CONSTITUTIONAL: Denies body aches, fever, chills, or sweats. EYES: Denies visual changes, redness, or discharge. ENT: reports rhinorrhea, congestion, denies sore throat otalgia. CARDIOVASCULAR: Denies chest pain, palpitations, or edema. RESPIRATORY: Denies cough dyspnea. GASTROINTESTINAL: Denies abdominal pain, nausea, vomiting, or diarrhea. MUSCULOSKELETAL: Denies back pain, joint pain, or myalgia. NEUROLOGIC: Denies headache PMF[facility] Past Medical History Medical History Acquired lymphedema of lower extremity ADD (attention deficit disorder) GERD (gastroesophageal reflux disease) History of sinus problem Surgical History Surgical History History of appendectomy Family History Family History Mother Family history non-contributory Social History Social History Smoking status: Current every day smoker Tobacco type: e-cigarettes/vaping Additional smoking assessment comments: quit cigarettes 2010 smoked 16 years Alcohol intake: current Alcohol use details: social Substance use: unknown Gender identity (if verbalized by the patient): Male Exam Narrative: GENERAL: well-appearing, no acute distress. EYES: conjunctivae clear ENT: Mucous membranes moist. nasal congestion noted, TMs pearly beasley with normal light reflex bilaterally; no tragal tenderness. Oropharynx erythematous without lesions. No drooling, no hoarseness, no trismus, uvula midline. No tripod positioning, hot potato voice, or soft palate swelling. NECK: Supple. No lymphadenopathy CHEST: Clear to auscultation, breath sounds equal. No respiratory distress, speaks in full sentences. HEART: Regular rate and rhythm. No murmur heard. SKIN: Warm, dry, no rash. NEURO: Alert and oriented x3. Course Course Emergency Course: Patient is aware of diagnosis, understands and agrees to treatment plan. Anticipatory guidance given. Patient agrees to follow-up as directed and is aware of reasons to seek care at the emergency department. Portions of this record may have been created with voice recognition software Level of Care: Express Care Visit Vital Signs Vital signs: Vital Signs Temperature 98.7 F 03/14/24 09:52 Pulse Rate 88 03/14/24 09:52 Respiratory Rate 20 03/14/24 09:52 Blood Pressure 132/80 03/14/24 09:52 Pulse Oximetry 100 03/14/24 09:52 Oxygen Delivery Room Air 03/14/24 09:52 Temperature 98.7 F 03/14/24 09:52 Pulse Rate 88 03/14/24 09:52 Respiratory Rate 20 03/14/24 09:52 Blood Pressure 132/80 03/14/24 09:52 Pulse Oximetry 100 03/14/24 09:52 Oxygen Delivery Room Air 03/14/24 09:52 MDM - URI/Sore Throat MDM Narrative Medical decision making narrative: discussed physical exam findings, reviewed prescription. Advise supportive treatments. Patient is appropriate for outpatient treatment and follow-up. Differential Diagnosis Differential diagnosis: Likely upper respiratory infection, viral infection and pharyngitis Discharge Plan Discharge Clinical Impression: Upper respiratory infection Qualifiers: URI type: unspecified URI Qualified Code(s): J06.9 - Acute upper respiratory infection, unspecified Patient Disposition: Home, Self-Care Condition: Stable Instructions: Antibiotic Form, Upper Respiratory Infection (ED) Additional Instructions: take antibiotic as directed Recommendations: continue Flonase spray and Zyrtec (or Claritin/Kasandra) over the counter Cough syrup may cause drowsiness; avoid driving or take it at night time. Tylenol 1000mg every 8 hours as needed for pain Symptomatic treatment includes: rest, fluids, and increase humidity of the air at home. Follow up with your primary care provider in 1 week. Go to the ER for worsening symptoms or concerns. Prescriptions: New amoxicillin-pot clavulanate 875-125 mg tablet 1 tablet PO Q12H 7 Days Qty: 14 0RF No Action carvedilol 6.25 mg tablet 6.25 mg PO DAILY omeprazole 40 mg capsule,delayed release(DR/EC) 40 mg PO DAILY fluticasone propionate 50 mcg/actuation spray,suspension 2 spray INTRANASAL DAILY loratadine 10 mg tablet 10 mg PO DAILY Follow-up/Referrals: Jah,RADHA Iyer [Primary Care Provider] - Stand Alone Forms: Work/School Release IP Time of Disposition: 10:41
== END 2024-03-14 10:48 | disposition home or self-care (01) ==
PROVIDERS: Emergency Provider Nurse Practitioner Family; PCP Physician Assistant
DX: J02.9 Acute pharyngitis, unspecified (principal); F17.290 Nicotine dependence, other tobacco product, uncomplicated; K21.9 Gastro-esophageal reflux disease without esophagitis; F98.8 Other specified behavioral and emotional disorders with onset usually occurring in childhood and adolescence
CPT/HCPCS: 99213; G0463

== ENCOUNTER 2024-04-11 13:28 | Emergency (ER) | payer OTHER, SELFPAY ==
[2024-04-11 13:42] VITALS: BP 131/88; PULSE 78; RESP 16; TEMP 36.9; O2SAT 100
--- NOTE | 2024-04-11 14:29 | ED_ITS ---
HPI - Extremity Problem General Chief complaint: Extremity Problem,Nontraumatic Stated complaint: left foot pain/gout? Time Seen by Provider: 04/11/24 14:29 Source: patient Mode of arrival: ambulatory Limitations: no limitations History of Present Illness HPI Narrative: 38 yo M presents with c/o pain to L great toe for 1 day. hx of gout. Swollen and tender to touch. Taking ibuprofen to treat pain. All systems reviewed and negative except as noted above. Related Data Home Medications Medication Instructions Recorded Confirmed fluticasone propionate 50 2 spray intranasal DAILY 12/09/23 02/10/24 mcg/actuation nasal spray,suspension loratadine 10 mg tablet 10 mg PO DAILY 12/09/23 02/10/24 omeprazole 40 mg capsule,delayed 40 mg PO DAILY 12/09/23 02/10/24 release Allergies Allergy/AdvReac Type Severity Reaction Status Date / Time No Known Allergies Allergy Verified 02/10/24 13:37 Review of Systems Review of Systems: CONSTITUTIONAL: Denies fever, chills, or sweats. EYES: Denies visual changes, redness, or discharge. ENT: Denies rhinorrhea, congestion, sore throat, or otalgia. CARDIOVASCULAR: Denies chest pain, palpitations, or edema. RESPIRATORY: Denies cough or dyspnea. GASTROINTESTINAL: Denies abdominal pain, nausea, vomiting, or diarrhea. GENITOURINARY: Denies dysuria or hematuria. SKIN: Denies rash or itching. MUSCULOSKELETAL: Reports pain and swelling to left great toe. NEUROLOGIC: Denies headache, numbness, or weakness. PSYCHIATRIC: Denies anxiety or depression. All other systems reviewed are negative, except as documented in HPI. [facility] Past Medical History Medical History Acquired lymphedema of lower extremity ADD (attention deficit disorder) GERD (gastroesophageal reflux disease) History of sinus problem Surgical History Surgical History History of appendectomy Family History Family History Mother Family history non-contributory Social History Social History Smoking status: Current every day smoker Tobacco type: e-cigarettes/vaping Additional smoking assessment comments: quit cigarettes 2010 smoked 16 years Alcohol intake: current Alcohol use details: social Substance use: unknown Gender identity (if verbalized by the patient): Male Comments At time of signature, agree with nursing past medical, surgical, social and family history. There is no relevant family history pertinent to the presenting complaint. Exam Narrative: GENERAL: This is a well-nourished, well-developed patient, in no apparent distress. HEAD: normocephalic, atraumatic. EYES: PERRL. Sclera clear/white. Vision is grossly intact. EARS: External ears normal NOSE: External nose normal NECK: Neck supple, non-tender without lymphadenopathy, masses or thyromegaly. CARDIOVASCULAR: Regular rate and rhythm without murmurs, gallops, or rubs. RESPIRATORY: Clear to auscultation. Breath sounds equal bilaterally. No wheezes, rales, or rhonchi. SKIN: warm, Dry, intact with no suspicious lesions or rash, good texture and turgor. NEURO: awake, alert, and oriented to person, place and time. There were no obvious focal neurologic abnormalities. EXTREMITIES: tender on palpation to L great MTP. swollen, warm to touch with mild erythema. Course Course Level of Care: Express Care Visit Vital Signs Vital signs: Vital Signs Temperature 36.9 C 04/11/24 13:42 Pulse Rate 78 04/11/24 13:42 Respiratory Rate 16 04/11/24 13:42 Blood Pressure 131/88 04/11/24 13:42 Pulse Oximetry 100 04/11/24 13:42 Oxygen Delivery Room Air 04/11/24 13:42 Temperature 36.9 C 04/11/24 13:42 Pulse Rate 78 04/11/24 13:42 Respiratory Rate 16 04/11/24 13:42 Blood Pressure 131/88 04/11/24 13:42 Pulse Oximetry 100 04/11/24 13:42 Oxygen Delivery Room Air 04/11/24 13:42 Reviewed MDM - Extremity (Nontraumatic) MDM Narrative Medical decision making narrative: Patient is aware of diagnosis, understands and agrees to treatment plan. Anticipatory guidance given. Patient agrees to follow-up as directed and is aware of reasons to seek care at the emergency department. Portions of this record may have been created with voice recognition software Discharge Plan Discharge Clinical Impression: Gout Qualifiers: Gout site: foot Encounter type: initial encounter Chronicity: acute Patient Disposition: Home, Self-Care Condition: Stable Instructions: Gout (ED) Additional Instructions: Take medications as prescribed. Elevate when at rest. Follow-up with your doctor if symptoms are not improving. Prescriptions: New colchicine 0.6 mg capsule 0.6 mg PO DIRECTED Qty: 3 0RF Rx Instructions: Take 2 tablets and then 1 hour later take 1 tablet. prednisone 20 mg tablet 40 mg PO DAILY 5 Days Qty: 10 0RF diclofenac potassium 50 mg tablet 50 mg PO TID 7 Days Qty: 21 0RF No Action omeprazole 40 mg capsule,delayed release(DR/EC) 40 mg PO DAILY fluticasone propionate 50 mcg/actuation spray,suspension 2 spray INTRANASAL DAILY loratadine 10 mg tablet 10 mg PO DAILY Follow-up/Referrals: Jah,RADHA Iyer [Primary Care Provider] - Stand Alone Forms: Work/School Release IP Time of Disposition: 14:36
== END 2024-04-11 14:40 | disposition home or self-care (01) ==
PROVIDERS: Emergency Provider Nurse Practitioner Family; PCP Physician Assistant
DX: M10.9 Gout, unspecified (principal); F17.290 Nicotine dependence, other tobacco product, uncomplicated; K21.9 Gastro-esophageal reflux disease without esophagitis
CPT/HCPCS: 99213; G0463

== ENCOUNTER 2024-04-19 11:30 | Emergency (ER) | payer OTHER, SELFPAY ==
--- NOTE | ~2024-04-19 | XR_ITS ---
XR chest 2V Ordering provider: LANCE Hope History: 38 years Male with . cough . Comparison: None. FINDINGS: MEDIASTINUM: The cardiac silhouette is not enlarged. LUNGS: No infiltrates, effusions or pneumothorax. OTHER: No free air under the diaphragm. IMPRESSION: No acute cardiopulmonary pathology. Reviewed, dictated and finalized at location A. [employer]
[2024-04-19 11:41] VITALS: BP 149/83; PULSE 65; RESP 18; TEMP 36.7; O2SAT 100
--- NOTE | 2024-04-19 12:07 | ED.GENADULT ---
HPI - General Adult General Chief complaint: Upper Respiratory Infection Stated complaint: Fever/Cough Source: patient Mode of arrival: ambulatory Limitations: no limitations History of Present Illness HPI narrative: Patient presents for evaluation of sick symptoms for the last 4 days. Symptoms include fever, nausea and cough. No chills, vomiting, diarrhea, SOB. His recently had pneumonia. He has been taking tylenol and tussin DM for his symptoms. He does vape. Related Data Home Medications ?Medication ?Instructions ?Recorded ?Confirmed ?Last Taken ?Type fluticasone propionate 50 2 spray intranasal DAILY 12/09/23 04/19/24 Unknown History mcg/actuation nasal spray,suspension loratadine 10 mg tablet 10 mg PO DAILY 12/09/23 04/19/24 Unknown History omeprazole 40 mg capsule,delayed 40 mg PO DAILY 12/09/23 04/19/24 Unknown History release carvedilol 6.25 mg tablet mg 04/19/24 Unknown History Allergies Allergy/AdvReac Type Severity Reaction Status Date / Time No Known Allergies Allergy Verified 04/19/24 11:38 Review of Systems Review of Systems: CONSTITUTIONAL:Reports fever. Denies chills, or sweats. EYES: Denies visual changes, redness, or discharge. ENT: Denies rhinorrhea, congestion, sore throat, or otalgia. CARDIOVASCULAR: Denies chest pain, palpitations, or edema. RESPIRATORY: Reports denies shortness of GASTROINTESTINAL: Reports nausea. Denies abdominal pain, vomiting, or diarrhea. GENITOURINARY: Denies dysuria or hematuria. SKIN: Denies rash or itching. MUSCULOSKELETAL: Denies back pain, joint pain, or myalgia. NEUROLOGIC: Denies headache, numbness, dizziness, or weakness. PSYCHIATRIC: Denies anxiety or depression. [facility] Past Medical History Medical History Acquired lymphedema of lower extremity History of sinus problem GERD (gastroesophageal reflux disease) ADD (attention deficit disorder) Surgical History Surgical History History of appendectomy Family History Family History Mother Family history non-contributory Social History Social History Smoking status: Current every day smoker Tobacco type: e-cigarettes/vaping Additional smoking assessment comments: quit cigarettes 2010 smoked 16 years Alcohol intake: current Alcohol use details: social Substance use: unknown Gender identity (if verbalized by the patient): Male Exam Narrative: GENERAL: Well-appearing, well-nourished, and in no acute distress. HEAD: Normocephalic, atraumatic. EYES: PERRLA and EOMI. ENT: Nares clear, no rhinorrhea or epistaxis. Mucous membranes moist. Oropharynx without tonsillar hypertrophy exudate or other lesions. Bilateral TMs pearly beasley nonbulging NECK: Supple. No adenopathy or masses. No carotid bruits or JVD CHEST: Clear to auscultation. No respiratory distress. No wheezes rales or rhonchi HEART: Regular rate and rhythm. No murmur heard. Normal peripheral pulses. ABDOMEN: Soft, nontender, nondistended, normal active bowel sounds. EXTREMITIES: Normal range of motion. No edema. SKIN: Warm, dry, no rash. NEURO: No focal deficits. Alert and oriented x3. PSYCH: Normal mood and affect. Course Course Emergency Course: This is a 38-year-old presents for evaluation of cough. Chest x-ray was normal. Exam consistent with acute viral syndrome. Increase hydration. OTC agents for symptom management. Advised on smoking cessation. Follow up with primary provider. Go to the ER for worsening symptoms. Pt in agreement with plan of care. Level of Care: Express Care Visit Vital Signs Vital signs: Vital Signs Temperature 36.7 C 04/19/24 11:41 Pulse Rate 65 04/19/24 11:41 Respiratory Rate 18 04/19/24 11:41 Blood Pressure 149/83 H 04/19/24 11:41 Pulse Oximetry 100 04/19/24 11:41 Oxygen Delivery Room Air 04/19/24 11:41 Temperature 36.7 C 04/19/24 11:41 Pulse Rate 65 04/19/24 11:41 Respiratory Rate 18 04/19/24 11:41 Blood Pressure 149/83 H 04/19/24 11:41 Pulse Oximetry 100 04/19/24 11:41 Oxygen Delivery Room Air 12/17/24 11:41 Medical Decision Making Vital Signs Vital Signs: Vital Signs Temperature 36.7 C 04/19/24 11:41 Pulse Rate 65 04/19/24 11:41 Respiratory Rate 18 04/19/24 11:41 Blood Pressure 149/83 H 04/19/24 11:41 Pulse Oximetry 100 04/19/24 11:41 Oxygen Delivery Room Air 04/19/24 11:41 Temperature 36.7 C 04/19/24 11:41 Pulse Rate 65 04/19/24 11:41 Respiratory Rate 18 04/19/24 11:41 Blood Pressure 149/83 H 04/19/24 11:41 Pulse Oximetry 100 04/19/24 11:41 Oxygen Delivery Room Air 04/19/24 11:41 Imaging Data Radiologist's impression: XR chest 2V Ordering provider: LANCE Hope History: 38 years Male with . cough . Comparison: None. FINDINGS: MEDIASTINUM: The cardiac silhouette is not enlarged. LUNGS: No infiltrates, effusions or pneumothorax. OTHER: No free air under the diaphragm. IMPRESSION: No acute cardiopulmonary pathology. Discharge Plan Discharge Clinical Impression: Upper respiratory infection, viral Patient Disposition: Home, Self-Care Condition: Stable Instructions: Antibiotic Form, Upper Respiratory Infection (ED) Patient Language: Palestinian Prescriptions: No Action omeprazole 40 mg capsule,delayed release(DR/EC) 40 mg PO DAILY fluticasone propionate 50 mcg/actuation spray,suspension 2 spray INTRANASAL DAILY loratadine 10 mg tablet 10 mg PO DAILY carvedilol 6.25 mg tablet colchicine 0.6 mg capsule 0.6 mg PO DIRECTED Qty: 3 0RF Rx Instructions: Take 2 tablets and then 1 hour later take 1 tablet. prednisone 20 mg tablet 40 mg PO DAILY 5 Days Qty: 10 0RF diclofenac potassium 50 mg tablet 50 mg PO TID 7 Days Qty: 21 0RF Follow-up/Referrals: Jah,RADHA Iyer [Primary Care Provider] - Stand Alone Forms: Work/School Release IP Time of Disposition: 12:47
== END 2024-04-19 12:48 | disposition home or self-care (01) ==
PROVIDERS: Emergency Provider Nurse Practitioner; PCP Physician Assistant
DX: J06.9 Acute upper respiratory infection, unspecified (principal); B97.89 Other viral agents as the cause of diseases classified elsewhere; F17.290 Nicotine dependence, other tobacco product, uncomplicated
CPT/HCPCS: 71046; 99213; G0463

== ENCOUNTER 2024-06-30 13:26 | Emergency (ER) | payer OTHER, SELFPAY ==
[2024-06-30 13:46] VITALS: BP 128/76; PULSE 78; RESP 20; TEMP 37; O2SAT 100
--- NOTE | 2024-06-30 14:48 | ED.URI ---
HPI - URI/Sore Throat General Chief Complaint: Upper Respiratory Infection Stated Complaint: throat/cough/headache History of Present Illness HPI Narrative: 38-year-old male presented for complaint of nasal congestion and drainage, sinus pressure and mild cough. Onset over 1 week. Reports temp 100.5. Denies shortness of breath, wheezing nausea vomiting. Taking Tylenol. Takes loratadine and Flonase daily. Related Data Home Medications ?Medication ?Instructions ?Recorded ?Confirmed ?Last Taken ?Type fluticasone propionate 50 2 spray intranasal DAILY 12/09/23 04/19/24 Unknown History mcg/actuation nasal spray,suspension loratadine 10 mg tablet 10 mg PO DAILY 12/09/23 04/19/24 Unknown History omeprazole 40 mg capsule,delayed 40 mg PO DAILY 12/09/23 04/19/24 Unknown History release carvedilol 6.25 mg tablet mg 04/19/24 Unknown History Allergies Allergy/AdvReac Type Severity Reaction Status Date / Time No Known Allergies Allergy Verified 06/30/24 14:11 Review of Systems Review of Systems: ROS per HPI [facility] Past Medical History Medical History Acquired lymphedema of lower extremity History of sinus problem GERD (gastroesophageal reflux disease) ADD (attention deficit disorder) Surgical History Surgical History History of appendectomy Family History Family History Mother Family history non-contributory Social History Social History Smoking status: Current every day smoker Tobacco type: e-cigarettes/vaping Additional smoking assessment comments: quit cigarettes 2010 smoked 16 years Alcohol intake: current Alcohol use details: social Substance use: unknown Gender identity (if verbalized by the patient): Male Exam Narrative: GENERAL: mildly Ill-appearing, no acute distress. EYES: conjunctivae clear ENT: Mucous membranes moist. TM pearly beasley with normal light reflex bilaterally; no tragal tenderness. Oropharynx erythematous without lesions. No drooling, no hoarseness, no trismus, uvula midline. No tripod positioning, hot potato voice, or soft palate swelling. NECK: Supple. No lymphadenopathy CHEST: Clear to auscultation, breath sounds equal. No respiratory distress, speaks in full sentences. HEART: Regular rate and rhythm. No murmur heard. SKIN: Warm, dry, no rash. NEURO: Alert and oriented x3. Course Course Emergency Course: Patient is aware of diagnosis, understands and agrees to treatment plan. Anticipatory guidance given. Patient agrees to follow-up as directed and is aware of reasons to seek care at the emergency department. Portions of this record may have been created with voice recognition software Level of Care: Express Care Visit Vital Signs Vital signs: Vital Signs Temperature 98.6 F 06/30/24 13:46 Pulse Rate 78 06/30/24 13:46 Respiratory Rate 20 06/30/24 13:46 Blood Pressure 128/76 06/30/24 13:46 Pulse Oximetry 100 06/30/24 13:46 Oxygen Delivery Room Air 06/30/24 13:46 Temperature 98.6 F 06/30/24 13:46 Pulse Rate 78 06/30/24 13:46 Respiratory Rate 20 06/30/24 13:46 Blood Pressure 128/76 06/30/24 13:46 Pulse Oximetry 100 06/30/24 13:46 Oxygen Delivery Room Air 06/30/24 14:12 MDM - URI/Sore Throat MDM Narrative Medical decision making narrative: strep result reviewed with pt. Advise supportive treatments. Patient is appropriate for outpatient treatment and follow-up. Differential Diagnosis Differential diagnosis: Likely upper respiratory infection, viral infection and pharyngitis Discharge Plan Discharge Clinical Impression: Sinusitis Patient Disposition: Home, Self-Care Condition: Stable Instructions: Antibiotic Form, Rhinosinusitis (ED) Additional Instructions: Take antibiotic as directed Recommendations: Flonase spray and Zyrtec (or Claritin/Kasandra) over the counter Cough syrup may cause drowsiness; avoid driving or take it at night time. Tylenol 1000mg every 8 hours as needed for pain Symptomatic treatment includes: rest, fluids, and increase humidity of the air at home. Follow up with your primary care provider in 1 week. Go to the ER for worsening symptoms or concerns. Patient Language: Sammarinese Prescriptions: New amoxicillin-pot clavulanate 875-125 mg tablet 1 tablet PO Q12H 7 Days Qty: 14 0RF No Action omeprazole 40 mg capsule,delayed release(DR/EC) 40 mg PO DAILY fluticasone propionate 50 mcg/actuation spray,suspension 2 spray INTRANASAL DAILY loratadine 10 mg tablet 10 mg PO DAILY carvedilol 6.25 mg tablet Follow-up/Referrals: Jah,RADHA Iyer [Primary Care Provider] - Stand Alone Forms: Work/School Release IP Time of Disposition: 14:54
== END 2024-06-30 14:56 | disposition home or self-care (01) ==
PROVIDERS: Emergency Provider Nurse Practitioner Family; PCP Physician Assistant
DX: J32.9 Chronic sinusitis, unspecified (principal); F17.290 Nicotine dependence, other tobacco product, uncomplicated
CPT/HCPCS: 99213; G0463

== ENCOUNTER 2024-12-13 08:17 | Emergency (ER) | payer OTHER, SELFPAY ==
[2024-12-13 08:21] VITALS: BP 142/93; PULSE 83; RESP 16; TEMP 36.4; O2SAT 100
--- OUTSIDE RECORDS SUMMARY | 2024-12-13 08:24 | XMS_ITS | Clinical Summary ---
Author Organization [facility] Address [address] [place] [address] Phone Care Team Providers Care Racing Mechanic Name Role Phone Shireen Tyson PAC Primary Care Pro vider Shalini Horta APRN, TIRE INSTALLER Unavailable Allergies No known active allergies Medications Multiple Vitamin (MULTIVITAMIN PO) Take by mouth daily. Active albuterol 108 (90 Base) MCG/ACT Aerosol Solution take 2 Puffs by inhalation every 6 hours as needed for Wheezing or Cough. 8 g 2 Active carvedilol (COREG) 6.25 MG Tablet Take 6.25 mg by mouth 2 times daily (with meals). Active loratadine (CLARITIN REDITABS) 10 MG TABLET DISPERSIBLE Take 10 mg by mouth daily. Active omeprazole (PriLOSEC) 40 MG CAPSULE DELAYED RELEASE Take 1 Capsule by mouth daily. 90 Capsule 2 4 Active fluticasone (FLONASE) 50 MCG/ACT SuspensionIndica tions:JAIME (obstructive sleep apnea),Snoring 2 Sprays by Nasal route daily. Use in each nostril as directed. 16 g 5 5 Active allopurinol (ZYLOPRIM) 100 MG Tablet One tab every other day 90 Tablet 3 5 Active ondansetron (ZOFRAN-ODT) 4 MG TABLET DISPERSIBLE Take 1 Tablet by mouth every 8 hours as needed for Nausea - 1st line. 30 Tablet 5 Active Active Problems Problem Noted Date Diagnosed Date Lymphedema associated with obesity 12/03/2022 Mitral valve insufficiency 11/18/2022 Hypertrophy of tonsils 11/18/2021 Other male erectile dysfunction 10/21/2021 Overview (10/21/2021): Urology follows from [facility] Cardiomegaly 08/26/2021 Overview (08/26/2021): Has seen CARDIO; no recommendations Has multiple sexual partners 08/26/2021 Overview (08/26/2021): D/c cialis Other fatigue 02/14/2021 Nocturnal hypoxia 02/14/2021 Diastolic dysfunction 11/19/2020 Localized edema 01/05/2018 Need for Tdap vaccination 11/17/2016 JAIME (obstructive sleep apnea) 09/08/2016 Morbid obesity with BMI of 40.0-44.9, adult 12/2016 Otitis of right ear 05/20/2016 Functional diarrhea 03/24/2016 Resolved Problems Problem Noted Date Diagnosed Date Resolved Date Daytime sleepiness 02/14/2021 Snoring 09/08/2016 11/28/2024 Overview (03/20/2022): [facility] Sleep center recommends weight loss, PPI, and tonsillectomy with ENT referral Encounters Date Type Department Care Team Description 12/06/2024 11:15 AM CDT Office Visit [facility] - Family Medicine [facility] [address] [place] [address] Joycelyn Queen APRN, TIRE INSTALLER Abdominal discomfort (Primary Dx); Irregular bowel habits; Dark stools Discharge Disposition: Discharged to home or Selfcare 12/06/2024 Travel 11/30/2024 Travel 11/28/2024 4:00 PM CDT Office Visit [facility] - Pulmonology & Sleep Medicine [facility] [address] [place] [address] Shalini Horta APRN, TIRE INSTALLER JAIME (obstructive sleep apnea) (Primary Dx); Morbid obesity with BMI of 40.0-44.9, adult ([facility]) Discharge Disposition: Discharged to home or Selfcare 11/28/2024 Telephone [facility] Pulmonology & Sleep Medicine [facility] [address] [place] [address] Shalini Horta APRN, TIRE INSTALLER 11/26/2024 10:50 AM CDT - 11/26/2024 11:59 PM CDT [facility] Ul[facility]ound [address] [place] [address] Shireen Tyson, GENARO Discharge Disposition: Discharged to home or Selfcare 11/26/2024 Travel 10/26/2024 Results Follow-Up [facility] Internal Medicine [facility] [address] [place] [id number] Shireen Tyson, GENARO CMP (COMPREHENSIVE METABOLIC PANEL), LIPASE, AMYLASE, Additional followed-up results: 2 10/24/2024 10:45 AM CDT Office Visit [facility] Internal Medicine [facility] [address] [place] [address] Shireen Tyson, GENARO Gastrointestinal complaint (Primary Dx); Nausea and vomiting, unspecified vomiting type; Diarrhea, unspecified type Discharge Disposition: Discharged to home or Selfcare 10/24/2024 Travel from Last 3 Months Immunizations Immunization Administration Dates Next Due Covid-19, Mrna, Lnp-s, PF, 1 00 mcg/0.5 mL Dose (Moderna) 09/22/2020,08/25/2020 DTP Vaccine 12/18/1989, 7,08/05/1985,1985,05/11/1985 Influenza Vaccine 02/14/2024 Influenza Vaccine, Quadrivalent, PF 01/02,01/11/2021,02/20/2020,2018,03/09/2018,03/24/2016 MMR Vaccine 12/14/1992,06/14/1986 OPV 12/18/1989, 7,08/05/1985,1985,05/11/1985 PUR FLU 3+ YRS PRES FREE QUAD IM 03/24/2016 TDAP Vaccine 11/17/2016 Family History * Patient is adopted Medical History Relation Name Comments Cancer Father Heart Attack Father Diabetes Maternal Grandmother Liver Disease Maternal Grandmother No Known Problems Mother Relation Name Status Comments Father Alive Maternal Grandmother Mother Alive Social History Tobacco Use Types Packs/Day Years Used Date Smoking Tobacco: Every Day E-Vapor with Nicotine Passive Smoke Exposure: Past Smokeless Tobacco: Former Tobacco Cessation:Ready to Q uit: Not Asked; Counseling Given: Not Answered Alcohol Use Standard Drinks/Week Comments Not Currently 0 (1 standard drink = 0.6 oz pur e alcohol) [facility] Utilities Answer Date Recorded In the past 12 months has th e electric, gas, oil, or water company threatened to shut off services in your home? Yes 08/15/2024 Social Connection and Isolation Panel Answer Date Recorded In a typical week, how many times do you talk on the phone with family, friends, or neighbors? Once a week 08/16/19 How often do you get togethe r with friends or relatives? Once a week 08/15/2024 How often do you attend chur ch or adventist services? Never 08/15/2024 Do you belong to any clubs o r organizations such as scientology groups, unions, fraternal or athletic groups, or school groups? Yes 08/15/2024 How often do you attend meet ings of the clubs or organizations you belong to? 1 to 4 times per year 08/15/2024 Are you , , di vorced, , never , or living with a partner? 08/15/2024 AUDIT-C Answer Date Recorded Q1: How often do you have a drink containing alcohol? Never 08/15/2024 Q2: How many drinks containi ng alcohol do you have on a typical day when you are drinking? Patient does not drink Q3: How often do you have si x or more drinks on one occasion? Never 08/15/2024 Overall Financial Resource Strain (CARDIA) Answe r Date Recorded How hard is it for you to pa y for the very basics like food, housing, medical care, and heating? Not very hard 08/15/2024 PHQ-2 Answer Date Recorded Total Score - Questions 1-9 0 03/0 09/2024 [facility] Occupat [facility] - Occupational Stress Questionnaire Answer Date Recorded Do you feel stress - tense, restless, nervous, or anxious, or unable to sleep at night because your mind is troubled all the time - these days? Only a little 08/15/2024 Exercise Vital Sign Answer Date Recorde d On average, how many days pe r week do you engage in moderate to strenuous exercise (like a brisk walk)? 5 days 08/15/2024 On average, how many minutes do you engage in exercise at this level? 60 min 08/15/2024 Hunger Vital Sign Answer Date Recorded Within the past 12 months, y ou worried that your food would run out before you got the money to buy more. Never true 08/16/19 25 Within the past 12 months, t he food you bought just didn't last and you didn't have money to get more. Never true 08/15/2024 PRAPARE - Transportation Answer Date Re corded In the past 12 months, has l ack of transportation kept you from medical appointments or from getting medications? No 08/02 In the past 12 months, has l ack of transportation kept you from meetings, work, or from getting things needed for daily living? No 08/15/2024 Housing Stability Vital Sign Answer Florin e Recorded In the last 12 months, was t here a time when you were not able to pay the mortgage or rent on time? Yes 10/05/2023 In the last 12 months, how many places have you lived? 1 10/05/2023 In the last 12 months, was t here a time when you did not have a steady place to sleep or slept in a detention (including now)? No 10/05/2023 Housing Stability Vital Sign Answer Florin e Recorded In the last 12 months, was t here a time when you were not able to pay the mortgage or rent on time? Yes 08/15/2024 In the past 12 months, how m any times have you moved where you were living? 0 08/15/2024 At any time in the past 12 m [facility], were you homeless or living in a detention (including now)? No 08/15/2024 Education Answer Date Recorded What is the highest level of school you have completed or the highest degree you have received? GED or equivalent 06/2022 Sexually Active Control Partners Comments Yes None Female Sex and Gender Information Value Date Recorded Sex Assigned at Not on file Legal Sex Male 10:54 PM CDT Gender Identity Not on file Sexual Orientation Not on file Last Filed Vital Signs Vital Sign Reading Time Taken Comments Blood Pressure 120/86 12/06/2024 11:20 AM CDT Pulse 75 12/06/2024 11:20 AM CDT Temperature 36.8 C (98.2 F) 12/06/2024 11:20 AM CDT Respiratory Rate 18 12/06/2024 11:2 0 AM CDT Oxygen Saturation 100% 12/06/2024 11: 20 AM CDT Inhaled Oxygen Concentration - - Weight 138.5 kg (305 lb 6.4 oz) 025 11:20 AM CDT Height 182.9 cm (6') 12/06/2024 11:20 AM CDT Body Mass Index 41.42 12/06/2024 11:20 AM CDT Plan of Treatment Upcoming Encounters Date Type Department Care Team (Late st Contact Info) Description 11/27/2025 4:00 PM CDT Office Visit [facility] - Pulmonology & Sleep Medicine [facility] [address] [place] [address] Shalini Horta, SENIOR MICROS[employer]FT NET DEVELOPER, TIRE INSTALLER [address] [address] Health Maintenance Due Date Last Done Comments Hepatitis B Immunization (1 of 3 - 19+ 3-dose series) 12/06/2003 Pneumococcal Immunization Combined (1 of 2 - PCV) 12/06/2003 Human Papillomavirus (HPV) Immunization (1 - 3-dose SCDM series) 12/06/2011 Influenza Immunization (#1) 01/02/202502/01, 01/14/2022, 01/11/2021, Additional history exists DTaP/Tdap/Td Immunization (7 - Td or Tdap) 11/17/2026 11/17/2016, 12/18/1989, 08/29/1986, Additional history exists Td Immunization Every 10 Years (Adults With 1 Tdap) 11/17/2026 11/17/2016 Immunochemical Fecal Occult Blood 2029 06/25/2021 Colonoscopy 07/23/2031 07/22/2021 Colorectal Cancer Screening 07/23/2031 Respiratory Syncytial Virus (RSV) Immunization (Adult) (1 - 1-dose 75+ series) 12/06/2059 Hepatitis C Virus (HCV) Screening Completed 08/26/2021, 07/05/2018 SARS-COV-2 Immunization Completed 02/14/20 24, 04/25/2021, 09/22/2020, Additional history exists Meningococcal Immunization (ACWY) Aged Out No longer eligible based on patient's age to complete this topic Rotavirus Immunization Aged Out No lo nger eligible based on patient's age to complete this topic Interventions Community Resource Recommendations Community Resource Services Recommended Domains Addressed Status Status Reason/Outcome Date/Time [facility] Government Benefits, Spot Wel[employer] Housing, Public Housing, Residential Housing Financial Resource Strain, Housing Stability Recommended 03/23/2024 10:10 PM CHAPTER RELATIONS ADMINISTRATOR from Last 12 Months Procedures Procedure Name Priority Date/Time Associated Diagnosis Comments O & P, TRAVEL HX OR IMMUNOCOMPROMISED, FECES, RUIZ OPE Routine 11/30/2024 7:38 AM CDT Gastrointestinal complaint Nausea and vomiting, unspecified vomiting type Diarrhea, unspecified type STOOL, OVA & PARASITES (O&P) Routine 11/30/2024 7:38 AM CDT Gastrointestinal complaint Nausea and vomiting, unspecified vomiting type Diarrhea, unspecified type CULTURE, STOOL Routine 11/30/2024 7:38 AM CDT Gastrointestinal complaint Nausea and vomiting, unspecified vomiting type Diarrhea, unspecified type LIPID PANEL Routine 11/26/2024 11:18 AM CDT Pure hypercholesterolemia US ABDOMEN COMPLETE Routine 11/26/2024 11:15 AM CDT Gastrointestinal complaint Nausea and vomiting, unspecified vomiting type Diarrhea, unspecified type CBC WITH AUTO DIFFERENTIAL Routine 10/24/2024 11:31 AM CDT Gastrointestinal complaint Nausea and vomiting, unspecified vomiting type Diarrhea, unspecified type AMYLASE Routine 10/24/2024 11:31 AM CDT Gastrointestinal complaint Nausea and vomiting, unspecified vomiting type Diarrhea, unspecified type LIPASE Routine 10/24/2024 11:31 AM CDT Gastrointestinal complaint Nausea and vomiting, unspecified vomiting type Diarrhea, unspecified type COMPLETE BLOOD COUNT (CBC) WITH DIFF Routine 10/24/2024 11:31 AM CDT Gastrointestinal complaint Nausea and vomiting, unspecified vomiting type Diarrhea, unspecified type CMP (COMPREHENSIVE METABOLIC PANEL) Routine 10/24/2024 11:31 AM CDT Gastrointestinal complaint Nausea and vomiting, unspecified vomiting type Diarrhea, unspecified type HEPATITIS C ANTIBODY Routine 08/26/2021 1:58 PM CDT STD exposure POCT STOOL, OCCULT BLOOD, DIAGNOSTIC Routine 06/25/2021 3:44 PM CHAPTER RELATIONS ADMINISTRATOR Bright red stool from Last 3 Months or Most Recently Relevant to Health Maintenance Results * O & P, TRAVEL HX OR IMMUNOCOMPROMISED, FECES, ELROSA OPE (11/30/2024 7:38 AM CDT) Pathologist [facility] OPE, OVA AND PARASITE, MICROSCOPY, F SEE NOTE 12/07/2024 10:16 AM CDT [facility] Comment: SOURCE: STOOL, LP OVA AND PARASITE, MICROSCOPY, F FINAL No parasites seen. Cryptosporidium, Cyclospora, and microsporidia are not readily detected by this method. Single negative specimen does not rule out parasitic infection. Test Performed by: [facility] - [address] [address] Cruise Consultant: Geraldine Curtis Ph.D.; CLIA# [id number] Stool Non-Phlebotomy Collection / Unknown 11/30/2024 7:38 AM CDT 11/30/2024 8:25 AM CDT Shireen Tyson PAC LAB SEND OUTS F inal Result [facility] US * CULTURE, STOOL (11/30/2024 7:38 AM CDT) CULTURE RESULTS NO SALMONELLA, SHIGELLA OR E COLI 0157 ISOLATED 12/02/2024 8:34 AM CDT [facility] CULTURE RESULTS NEGATIVE FOR CAMPYLOBACTER ANTIGEN 12/02/2024 8:34 AM CDT [facility] CULTURE RESULTS SHIGA TOXIN 1 AND SHIGA TOXIN 2 NOT DETECTED 12/02/2024 8:34 AM CDT [facility] CULTURE RESULTS Few Probable usual geetha for this specimen source 12/02/2024 8:34 AM CDT [facility] Culture STOOL SPECIMEN / Unknown Non-Phlebotomy Collection / Unknown 11/30/2024 7:38 AM CDT 11/30/2024 8:25 AM CDT Narrative [facility] - 12/02/2024 8:34 AM CDT Unless stated above as an isolate, no Salmonella, Shigella, E Coli O157, Aeromonas, or Pleisiomonas species isolated Shireen Tyson [facility] MICROBIOLOGY - GE NERAL ORDERABLES Final Result Performing Organization Address City/[facility] Co de Phone Number [facility] [address] [place] [address], * (ABNORMAL) LIPID PANEL (11/26/2024 11:18 AM CDT) CHOLESTEROL 157 <200 mg/dL 11/26/2024 11:52 AM CDT [facility] TRIGLYCERIDES 84 <150 mg/dL 11/26/2024 11:52 AM CDT [facility] HDL CHOLESTEROL 31(L) >40 mg/dL 11:52 AM CDT [facility] LDL 109 <130 mg/dL 11/26/2024 11:52 AM CDT [facility] VLDL 17 10 - 50 mg/dL 11/26/2024 11:52 AM CDT [facility] CHOL/HDL RATIO 5.1(H) 0.0 - 4.4 11/26/2024 11:52 AM CDT [facility] NON-HDL CHOLESTEROL 126 <130 mg/dL 11/26/2024 11:52 AM CDT [facility] IS THE PATIENT REQUIRED TO BE FASTING? Yes 11/26/2024 11:52 AM CDT [facility] HAS THE PATIENT BEEN FASTING? Yes 11/26/2024 11:52 AM CDT [facility] Blood Venipuncture / Unknown 11/26/2024 11:18 AM CDT 11/26/2024 11:25 AM CDT us Loree Gardner MD CHEMISTRY ORDERABLES Final Result [facility] [address] [place] [address] * US ABDOMEN COMPLETE (11/26/2024 11:15 AM CDT) Anatomical Region Laterality Modality Abdomen N/A Ultrasound 2024 7:10 AM CDT Impressions 2024 7:13 AM CDT IMPRESSION: Mild hepatomegaly with fatty infiltrative changes of the liver. Narrative 2024 7:13 AM CDT EXAM DESCRIPTION: US ABDOMEN COMPLETE REASON FOR STUDY: Vomiting and abdominal pain currently. TECHNIQUE: Grayscale images acquired of the abdomen and recorded on PACS. Additional selected color Doppler and spectral images recorded. COMPARISON: None available FINDINGS: PANCREAS: Visualized portions of the pancreas are within normal limits. Portions of the pancreatic body and tail are obscured due to bowel gas. LIVER: Mildly enlarged measuring 17.7 cm in cephalo caudad dimension. Generally increased echotexture could indicate fatty infiltrative change. No focal lesion. Antegrade flow portal vein. GALLBLADDER: The gallbladder appears unremarkable. No cholelithiasis. No gallbladder wall thickening or pericholecystic fluid. No positive sonographic [place] sign reported. BILIARY: There is no intrahepatic or extrahepatic biliary ductal dilatation. Common bile duct measures 0.46 cm . INFERIOR VENA CAVA: Normal flow. AORTA: No aneurysm. RIGHT KIDNEY: Normal size. Normal echogenicity. No solid mass or cyst. No hydronephrosis. Measures 12.6 cm in length. LEFT KIDNEY: Normal size. Normal echogenicity. No solid mass or cyst. No hydronephrosis. Measures 13.7 cm in length. SPLEEN: Normal size. No solid masses. PERITONEAL AND PLEURAL SPACES: No ascites or effusions. OTHER: No other significant finding. THIS IS AN ELECTRONICALLY VERIFIED FINAL REPORT 2024 7:10 AM - Electronically signed by Dar Kirby M.D. RB: LORI Report ID: [id number] Reading Location: [id number] Procedure Note Dar Kirby MD - 2024 EXAM DESCRIPTION: US ABDOMEN COMPLETE REASON FOR STUDY: Vomiting and abdominal pain currently. TECHNIQUE: Grayscale images acquired of the abdomen and recorded on PACS. Additional selected color Doppler and spectral images recorded. COMPARISON: None available FINDINGS: PANCREAS: Visualized portions of the pancreas are within normal limits. Portions of the pancreatic body and tail are obscured due to bowel gas. LIVER: Mildly enlarged measuring 17.7 cm in cephalo caudad dimension. Generally increased echotexture could indicate fatty infiltrative change. No focal lesion. Antegrade flow portal vein. GALLBLADDER: The gallbladder appears unremarkable. No cholelithiasis. No gallbladder wall thickening or pericholecystic fluid. No positive sonographic [place] sign reported. BILIARY: There is no intrahepatic or extrahepatic biliary ductal dilatation. Common bile duct measures 0.46 cm . INFERIOR VENA CAVA: Normal flow. AORTA: No aneurysm. RIGHT KIDNEY: Normal size. Normal echogenicity. No solid mass or cyst. No hydronephrosis. Measures 12.6 cm in length. LEFT KIDNEY: Normal size. Normal echogenicity. No solid mass or cyst. No hydronephrosis. Measures 13.7 cm in length. SPLEEN: Normal size. No solid masses. PERITONEAL AND PLEURAL SPACES: No ascites or effusions. OTHER: No other significant finding. THIS IS AN ELECTRONICALLY VERIFIED FINAL REPORT 2024 7:10 AM - Electronically signed by Dar Kirby M.D. RB: LORI Report ID: [id number] Reading Location: [id number] IMPRESSION: Mild hepatomegaly with fatty infiltrative changes of the liver. Shireen Tyson [facility] US ORDERABLES Final Result * CBC WITH AUTO DIFFERENTIAL (10/24/2024 11:31 AM CDT) WBC 7.24 4.00 - 12.00 10(3)/mcL 10/24/2024 11:54 AM CDT [facility] RBC 5.24 4.40 - 5.80 10(6)/mcL 10/24/2024 11:54 AM CDT [facility] HEMOGLOBIN (HGB) 15.5 13.0 - 16.5 g/dL 10/24/2024 11:54 AM CDT [facility] HEMATOCRIT (HCT) 46.3 38.0 - 50.0 % 10/24/2024 11:54 AM CDT [facility] MCV 88.4 82.0 - 96.0 fL 10/24/2024 11:54 AM CDT [facility] MCH 29.6 26.0 - 32.0 pg 10/24/2024 11:54 AM CDT [facility] MCHC 33.5 31.0 - 36.0 g/dL 10/24/2024 11:54 AM CDT [facility] PLATELET COUNT 324 140 - 440 10(3)/mcL 10/24/2024 11:54 AM CDT [facility] RDW 12.2 11.8 - 15.5 % 10/24/2024 11:54 AM CDT [facility] MPV 9.4 8.0 - 12.6 fL 10/24/2024 11:54 AM CDT [facility] NEUTROPHILS 55.8 40.0 - 68.0 % 10/24/2024 11:54 AM CDT [facility] LYMPHOCYTES 29.0 19.0 - 49.0 % 10/24/2024 11:54 AM CDT [facility] MONOCYTES 8.0 3.0 - 13.0 % 10/24/2024 11:54 AM CDT [facility] EOSINOPHILS 6.1 0.0 - 8.0 % 10/24/2024 11:54 AM CDT [facility] BASOPHILS 0.8 0.0 - 1.0 % 10/24/2024 11:54 AM CDT [facility] IMMATURE GRANULOCYTE 0.3 0.0 - 0.4 % 10/24/2024 11:54 AM CDT [facility] Comment:Immature Granulocyte s includes Metamyelocytes, Myelocytes, and Promyelocytes. ABSOLUTE NEUTROPHILS 4.04 1.40 - 5.30 10(3)/[facility] 10/24/2024 11:54 AM CDT [facility] ABSOLUTE LYMPHOCYTES 2.10 0.90 - 3.30 10(3)/[facility] 10/24/2024 11:54 AM CDT [facility] ABSOLUTE MONOCYTES 0.58 0.10 - 0.90 10(3)/[facility] 10/24/2024 11:54 AM CDT [facility] ABSOLUTE EOSINOPHIL 0.44 0.00 - 0.50 10(3)/[facility] 10/24/2024 11:54 AM CDT [facility] ABSOLUTE BASOPHILS 0.06 0.00 - 0.10 10(3)/[facility] 10/24/2024 11:54 AM CDT [facility] ABSOLUTE IMMATURE GRANULOCYTE 0.02 0.00 - 0.03 10 (3) mcL. 10/24/2024 11:54 AM CDT [facility] NRBC PER 100 WBC 0 10/25/19 11:54 AM CDT [facility] Blood Venipuncture / Unknown 10/24/2024 11:31 AM CDT 10/24/2024 11:49 AM CDT Shireen Tyson PAC HEMATOLOGY ORDERA BLES Final Result [facility] [address] [place] [address] * LIPASE (10/24/2024 11:31 AM CDT) Pathologist [facility] LIPASE 16 8 - 78 U/L 10/24/2024 12:35 PM CDT [facility] Blood Venipuncture / Unknown 10/24/2024 11:31 AM CDT 10/24/2024 11:49 AM CDT Shireen Tyson PAC CHEMISTRY ORDERAB LES Final Result Performing Organization Address City/[facility]/ZIP Co de Phone Number [facility] [address] [place] [address] * (ABNORMAL) CMP (COMPREHENSIVE METABOLIC PANEL) (10/24/2024 11:31 AM CDT) [facility] SODIUM 138 136 - 145 mmol/L 10/24/2024 12:35 PM CDT [facility] POTASSIUM 3.9 3.5 - 5.1 mmol/L 10/24/2024 12:35 PM CDT [facility] CHLORIDE 105 98 - 107 mmol/L 10/24/2024 12:35 PM CDT [facility] CO2, VENOUS 26 22 - 30 mmol/L 10/24/2024 12:35 PM CDT [facility] ANION GAP 10.9 <18.0 mmol/L 10/24/2024 12:35 PM CDT [facility] GLUCOSE 81 70 - 99 mg/dL 10/24/2024 12:35 PM CDT [facility] BUN 10 9 - 21 mg/dL 10/24/2024 12:35 PM CDT [facility] CREATININE, BLOOD 0.94 0.70 - 1.30 mg/dL 10/24/2024 12:35 PM CDT [facility] BUN/CREATININE RATIO 11(L) 12 - 20 ratio 10/24/2024 12:35 PM CDT [facility] TOTAL PROTEIN 8.0 6.0 - 8.0 g/dL 10/24/2024 12:35 PM CDT [facility] ALBUMIN 4.4 3.5 - 5.0 g/dL 10/24/2024 12:35 PM T [facility] A/G RATIO 1.2 1.0 - 2.2 10/24/2024 12:35 PM CDT [facility] CALCIUM 8.8 8.7 - 10.5 mg/dL 10/24/2024 12:35 PM CDT [facility] T BILI 0.5 0.2 - 1.2 mg/dL 10/24/2024 12:35 PM CDT [facility] SGOT (AST) 26 <43 U/L 10/24/2024 12:35 PM T [facility] SGPT (ALT) 35 <56 U/L 10/24/2024 12:35 PM T [facility] ALKALINE PHOSPHATASE 70 40 - 150 U/L 10/24/2024 12:35 PM [facility] IS THE PATIENT REQUIRED TO BE FASTING? No 10/24/2024 12:35 PM T [facility] GFR, ESTIMATED >60 >=60 10/24/2024 12:35 PM T [facility] Comment: Creatinine Clearance is the preferred criteria for selecting drug dose adjustments in renally impaired patients. The GFR is provided as additional pertinent clinical information. GFR is reported in mL/min/1.73 sq m. Calculation based on the Chronic Kidney Disease Epidemiology Collaboration (CKD- EPI) equation refit without adjustment for race. GFR, EST. >60 >=60 025 12:35 PM T [facility] GFR, EST. NONAFRICAN >60 >=60 10/24/2024 12:35 PM [facility] Blood Venipuncture / Unknown 10/24/2024 11:31 AM CDT 10/24/2024 11:49 AM CDT Shireen Javierarlin PAC CHEMISTRY ORDERAB LES Final Result Performing Organization Address City/[facility]/ZIP Co de Phone Number [facility] [address] [place] [address] * AMYLASE (10/24/2024 11:31 AM CDT) AMYLASE 41 25 - 125 U/L 10/24/2024 12:35 PM CDT [facility] Blood Venipuncture / Unknown 10/24/2024 11:31 AM CDT 10/24/2024 11:49 AM CDT Shireen Javierarlin PAC CHEMISTRY ORDERAB LES Final Result Performing Organization Address [facility] de Phone Number [facility] [address] [place] [address] * HEPATITIS C ANTIBODY (08/26/2021 1:58 PM CDT) hepatitis C antibody 0.10 <1 S/CO [facility] ARCH [id number] 08/26/2021 11:04 PM CDT [facility] Comment: Signal/Cutoff ratio < 0.79 is Nondetected Signal/Cutoff ratio 0.80-0.99 is Grayzone Signal/Cutoff ratio > 0.99 is Detected Supplemental assays are recommended if signal/cutoff ratio is >/=1.00. Signal/cutoff ratio result >/= 5.00 is 97% predictive of positivity for recombinant immunoblot assay (RIBA) and will be reported to the [place] Department of Public Health as required. Blood Venipuncture / Unknown 08/26/2021 1:58 PM CDT 08/26/2021 1:58 PM CDT Shireen Javierarlin PAC CHEMISTRY ORDERAB LES Final Result Performing Organization Address City/[facility] Co de Phone Number [facility] [address] [place] [address], * (ABNORMAL) POCT STOOL, OCCULT BLOOD, DIAGNOSTIC (06/25/2021 3:44 PM CHAPTER RELATIONS ADMINISTRATOR) OCCULT BLOOD, STOOL Positive(A) Negative, Other POC HEMOCULT CONTROL Recyclable Materials Sorter Pass 06/25/2021 3:44 PM CHAPTER RELATIONS ADMINISTRATOR Darshana Warren APRN, MELVA POINT OF CARE TESTIN G (MANUAL) Final Result from Last 3 Months or Most Recently Relevant to Health Maintenance Insurance MEDICAID [place] Care Teams Racing Mechanic Relationship Specialty Start Date End Date Shireen Tyson PAC PCP - General Physician Sql Programmer Analyst 10/26/20 Shalini Horta APRN, TIRE INSTALLER [address] [place] [id number] Nurse Practitioner Advanced Practice Nurse 11/18/22
--- OUTSIDE RECORDS SUMMARY | 2024-12-13 08:24 | XMS_ITS | Encounter Summary ---
Author Organization [facility] Address [address] [place] [address] Phone Care Team Providers Care Engine Turner Name Role Phone Virgil Yadav MD Primary Care Provider Shireen Tyson PAC Primary Care Pro vider Shalini Horta APRN, FIRMWARE TEST ENGINEER Unavailable [phone] Reason for Visit * Reason Comments Medication Refill Encounter Details Date Type Department Care Team (Late st Contact Info) Description 10/16/2020 Refill [facility] - Family Medicine [facility] [address] [place] [address] Shireen Tyson, [facility] [address] [place] [address] Medication Refill Social History Tobacco Use Types Packs/Day Years Used Date Smoking Tobacco: Every Day E-Vapor with Nicotine Smokeless Tobacco: Current Alcohol Use Standard Drinks/Week Comments Not Currently 0 (1 standard drink = 0.6 oz pur e alcohol) VERY RARELY PHQ-2 Answer Date Recorded Total Score - Questions 1-9 0 05/05 Sex and Gender Information Value Date Recorded Sex Assigned at Not on file Legal Sex Male 10:54 PM CDT Gender Identity Not on file Sexual Orientation Not on file documented as of this encounter Miscellaneous Notes * Telephone Encounter - Virgil Yadav MD - 10/22/2020 8:31 AM CDT Prescription approved. Please call in * Telephone Encounter - Cely Contreras RN - 10/22/2020 8:16 AM CDT This was discontinued last December - patient report not taking - no recent fills noted on [place] PDMP/MEDD - patient has upcoming appt with Shireen - looks like she was the last provider to prescribe this Medication failed the protocol, provider to review and approve the medication order if appropriate. Requested Prescriptions Pending Prescriptions Disp Refills furosemide (LASIX) 20 MG Tablet [Pharmacy Med Name: Furosemide 20 MG Oral Tablet] 30 Tablet 0 Sig: Take 1 tablet by mouth once daily Diuretics Protocol Failed - 10/22/2020 8:16 AM Failed - Serum sodium on record in past 12 months SODIUM Date Value Ref Range Status 08/03/2020 135 (L) 136 - 144 mmol/L Final Passed - Serum potassium on record in past 12 months POTASSIUM Date Value Ref Range Status 08/03/2020 4.3 3.5 - 5.1 mmol/L Final Passed - Blood pressure on record in past 12 months Clinician-entered: BP Readings from Last 3 Encounters: 08/15/20 122/74 08/01/20 118/76 07/04/20 130/80 Patient-entered: No data recorded Passed - Visit with relevant provider in past 12 months or upcoming 90 days Recent Visits Date Type Provider Dept 08/15/20 Office Visit Darshana Warren APN, FIRMWARE TEST ENGINEER [facility] 08/01/20 Office Visit Darshana Warren APN, FIRMWARE TEST ENGINEER [facility] 07/04/20 Office Visit Virgil Yadav MD [facility] [place] 05/23/20 Office Visit Ca Hill, PAC [facility] [place] 04/10/20 Office Visit Darshana Warren APN, FIRMWARE TEST ENGINEER [facility] 02/20/20 Office Visit Shireen Tyson, PAC [facility] 12/20/19 Office Visit Ca Hill, PAC [facility] 08/05/20 Office Visit Shireen Tyson, PAC [facility] [place] Showing recent visits within past 365 days and meeting all other requirements Future Appointments Date Type Provider Dept 10/26/20 Appointment Shireen Tyson, PAC [facility] Showing future appointments within next 90 days and meeting all other requirements Passed - GFR on record in past 12 months GFR, EST. NONAFRICAN Date Value Ref Range Status 08/03/2020 >60 >=60 Final documented in this encounter Plan of Treatment Upcoming Encounters Date Type Department Care Team (Late st Contact Info) Description 11/27/2025 4:00 PM CDT [facility] [place] [address] [place] [address] Shalini Horta APRN, FIRMWARE TEST ENGINEER #[address] [address] documented as of this encounter Visit Diagnoses Not on filedocumented in this encounter Additional Health Concerns Infection Onset Date Last Indicated Resolved Time COVID - 19 06/12/2021 06/12/2021 07/02/2021 12:1 6 AM BACK TENDER FOURDRINIER COVID - 19 07/08/2021 07/08/2021 07/28/2021 12:1 6 AM CDT COVID - 19 08/28/2021 08/28/2021 09/17/2021 12:1 6 AM CDT COVID - 19 12/24/2021 12/24/2021 01/03/2022 12:1 6 AM CDT COVID - 19 Confirmed 12/24/2021 12/24/2021 022 12:16 AM CDT COVID - 19 02/25/2022 02/25/2022 03/07/2022 12:1 6 AM CDT COVID - 19 04/09/2022 04/11/2022 04/21/2022 12:1 6 AM BACK TENDER FOURDRINIER COVID - 19 05/19/2022 05/19/2022 05/29/2022 12:1 6 AM BACK TENDER FOURDRINIER Respiratory Rule Out - RPA 07/01/2022 07/01/2022 0 07/01/2022 2:25 PM BACK TENDER FOURDRINIER Respiratory Rule-Out 10/05/2023 10/05/2023 024 3:40 PM CDT COVID - 19 10/05/2023 10/05/2023 10/05/2023 3:39 PM CDT Respiratory Rule-Out 11/11/2023 11/11/2023 024 2:01 PM CDT COVID - 19 11/11/2023 11/11/2023 11/11/2023 1:57 PM CDT COVID - 19 Confirmed 11/11/2023 11/11/2023 024 12:16 AM CDT Assessment Noted Time PHQ-9 Depression Total Score: 0 05/23/19 11:00 AM BACK TENDER FOURDRINIER documented as of this encounter Care Teams Engine Turner Relationship Specialty Start Date End Date Virgil Yadav MD #2 [facility] [address] [place] [address] PCP - General Family Medicine 04/23/15 10/25/20 Shireen Tyson PAC #2 [facility] [address] [place] [address] PCP - General Physician Customer Service Coordinator 10/26/20 Shalini Horta APRN, FIRMWARE TEST ENGINEER #2 [facility] [address] [place] [address] Nurse Practitioner Advanced Practice Nurse 11/18/22 documented as of this encounter
--- OUTSIDE RECORDS SUMMARY | 2024-12-13 08:24 | XMS_ITS | Clinical Summary ---
Author Organization [facility] [address] Address [address] [place] [address] Phone Care Team Providers Care Metal Framer Name Role Phone Shireen Tyson Primary Care Prov ider Allergies No known active allergies Medications multivitamin with minerals tablet Take 1 tablet by mouth daily Active azelastine 205.5 mcg (0.15 %) spray,non-aeros ol Administer 0.3 mL (2 sprays total) into affected nostril(s) every 12 (twelve) hours 4 Active fluticasone propionate (FLONASE) 50 mcg/actuation nasal spray Administer 2 sprays into affected nostril(s) daily 4 Active loratadine (Claritin) 10 mg tablet Take 1 tablet (10 mg total) by mouth daily 30 tablet 11 4 Active fluticasone propionate (FLONASE) 50 mcg/actuation nasal spray Administer 2 sprays into each nostril daily 1 each 4 Active Additional Information Patient not taking.Reported on 11/24/2024 omeprazole (PriLOSEC) 40 mg capsuleIndicati ons:Laryngeal spasm Take 1 capsule (40 mg total) by mouth daily 30 capsule 11 4 Active carvediloL (COREG) 6.25 mg tablet TAKE 1 TABLET BY MOUTH TWICE DAILY WITH MEALS 180 tablet 3 4 Active allopurinoL (ZYLOPRIM) 100 mg tablet Take 1 tablet (100 mg total) by mouth every other day Active Active Problems Problem Noted Date Diagnosed Date Allergies 10/14/2023 Assessment & Plan (10/14/2023 3:24 PM CDT): Blood allergy testing Claritin daily Flonase 2 sprays into each nostril while looking down over the sink, do not sniff in or blow nose after use for at least 30 minutes JAIME (obstructive sleep apnea) 06/09/2023 Primary hypertension 03/12/2023 Pure hypercholesterolemia 03/12/2023 Laryngeal spasm 03/14/2022 Assessment & Plan (10/14/2023 3:24 PM CDT): Blood allergy testing Claritin daily Flonase 2 sprays into each nostril while looking down over the sink, do not sniff in or blow nose after use for at least 30 minutes Assessment & Plan (03/14/2022 2:47 PM COORDINATOR HOTELS): Omeprazole 40 mg in the morning 30-60 minutes before a meal Consider Tonsillectomy if symptom do not improve with 50 pound weight loss LPR discussed and Handout provided Hypertrophy of tonsils 03/14/2022 Assessment & Plan (03/14/2022 2:47 PM COORDINATOR HOTELS): Consider Tonsillectomy if symptom do not improve with 50 pound weight loss ADHD 08/19/2021 Diastolic dysfunction 11/19/2020 Morbid (severe) obesity due to excess calories 0 08/27/2019 Overview (08/19/2021): Last Assessment & Plan: Condition: stable Comorbids of elevated BMI >40% Follow up in: six months Snoring 09/08/2016 Encounters Date Type Department Care Team Description 11/24/2024 2:30 PM CDT Office Visit [place] [employer] [facility] at [address] [address] Edgar Moreno NP Morbid (severe) obesity due to excess calories (HCC) (Primary Dx); Diastolic dysfunction; JAIME (obstructive sleep apnea); Pure hypercholesterolemia; Primary hypertension; Congestive heart failure, unspecified HF chronicity, unspecified heart failure type (HCC) from Last 3 Months Social History Tobacco Use Types Packs/Day Years Used Date Smoking Tobacco: Every Day Vaping Tobacco Cessation:Ready to Q uit: Not Asked; Counseling Given: Not Answered Sex and Gender Information Value Date Recorded Sex Assigned at Not on file Legal Sex Male 7:52 PM COORDINATOR HOTELS Gender Identity Male 01/13/2024 3:12 PM CDT Sexual Orientation Pansexual 01/13/2024 3: 12 PM CDT Obstetrics History Last Filed Vital Signs Vital Sign Reading Time Taken Comments Blood Pressure 124/77 11/24/2024 2:32 PM CDT Pulse 79 11/24/2024 2:32 PM CDT Temperature 36.1 C (96.9 F) 03/30/2023 10:36 AM COORDINATOR HOTELS Respiratory Rate 18 11/24/2024 2:32 PM CDT Oxygen Saturation 96% 10/14/2023 3:00 PM CDT Inhaled Oxygen Concentration - - Weight 138.8 kg (306 lb) 11/24/2024 2:32 PM CDT Height 182.9 cm (6') 11/24/2024 2:32 PM CDT Body Mass Index 41.5 11/24/2024 2:32 PM CDT Plan of Treatment Health Maintenance Due Date Last Done Comments Depression Screening 1984 Hepatitis C Screening 1984 Varicella Vaccines (1 of 2 - 13+ 2-dose series) 1997 Hepatitis B Screening 2002 Regular Well Visit/Exam 18-64 2002 Pneumococcal vaccine <65 (1 of 2 - PCV) 12/06/2003 HPV Vaccines (1 - 3-dose SCD M series) 12/06/2011 Covid-19 Vaccine (3 - 2023-2 5 season) 2024 09/22/2020, 08/25/2020 Influenza Vaccine (#1) 2025 , 01/14/2022, 01/11/2021, Additional history exists DTaP/Tdap/Td Vaccine (7 - Td or Tdap) 11/17/2026 11/17/2016, 12/18/1989, 08/29/1986, Additional history exists Insurance Care Teams Metal Framer Relationship Specialty Start Date End Date Shireen Tyson PA PCP - General Neurosurgery 02/22/21
--- OUTSIDE RECORDS SUMMARY | 2024-12-13 08:24 | XMS_ITS | Encounter Summary ---
Author Organization [facility] Address [address] [place] [address] Phone Care Team Providers Care Customer Acquisition Manager Name Role Phone Virgil Yadav MD Primary Care Provider Shireen Tyson PAC Primary Care Pro vider Shalini Horta APRN, ORANGE PICKER MACHINE OPERATOR Unavailable [phone] Reason for Visit * Reason Comments Medication Refill Encounter Details Date Type Department Care Team (Late st Contact Info) Description 10/24/2020 Refill [facility] - Family Medicine [facility] [address] [place] [address] Shireen Tyson, [facility] [address] [place] [address] Medication Refill Social History Tobacco Use Types [...] on file Sexual Orientation Not on file COVID-19 Exposure Response Date Recorded In the last month, have you been in contact with someone who was confirmed or suspected to have Coronavirus / COVID-19? No / Unsure 10/26/2020 8:02 AM CDT documented as of this encounter Plan of Treatment Upcoming Encounters Date Type Department Care Team (Late st Contact Info) Description 11/27/2025 4:00 PM CDT [facility] - Pulmonology & Sleep Medicine - [place] [address] [place] [address] Shalini Horta APRN, ORANGE PICKER MACHINE OPERATOR [address] [facility] [address] [address] documented as of this encounter Visit Diagnoses Not on filedocumented in this encounter Additional Health Concerns Infection Onset Date Last Indicated Resolved Time COVID - 19 06/12/2021 06/12/2021 07/02/2021 12:1 6 AM QUALITY NURSE COVID - 19 07/08/2021 07/08/2021 07/28/2021 12:1 6 AM CDT COVID - 19 08/28/2021 08/28/2021 09/17/2021 12:1 6 AM CDT COVID - 19 12/24/2021 12/24/2021 01/03/2022 12:1 6 AM CDT COVID - 19 Confirmed 12/24/2021 12/24/2021 022 12:16 AM CDT COVID - 19 02/25/2022 02/25/2022 03/07/2022 12:1 6 AM CDT COVID - 19 04/09/2022 04/11/2022 04/21/2022 12:1 6 AM QUALITY NURSE COVID - 19 05/19/2022 05/19/2022 05/29/2022 12:1 6 AM QUALITY NURSE Respiratory Rule Out - RPA 07/01/2022 07/01/2022 0 07/01/2022 2:25 PM QUALITY NURSE Respiratory Rule-Out 10/05/2023 10/05/2023 024 3:40 PM CDT COVID - 19 10/05/2023 10/05/2023 10/05/2023 3:39 PM CDT Respiratory Rule-Out 11/11/2023 11/11/2023 024 2:01 PM CDT COVID - 19 11/11/2023 11/11/2023 11/11/2023 1:57 PM CDT COVID - 19 Confirmed 11/11/2023 11/11/2023 024 12:16 AM CDT Assessment Noted Time PHQ-9 Depression Total Score: 0 05/23/19 21 11:00 AM QUALITY NURSE documented as of this encounter Care Teams Customer Acquisition Manager Relationship Specialty Start Date End Date Virgil Yadav MD #2 [facility] [address] [place] [address] PCP - General Family Medicine 04/23/15 10/25/20 Shireen Tyson PAC #2 [facility] [address] [place] [address] PCP - General Physician Dry Cleaner Presser 10/26/20 Shalini Horta APRN, ORANGE PICKER MACHINE OPERATOR #2 [facility] [address] [place] [address] Nurse Practitioner Advanced Practice Nurse 11/18/22 documented as of this encounter
--- OUTSIDE RECORDS SUMMARY | 2024-12-13 08:25 | XMS_ITS | Encounter Summary ---
Author Organization [facility] Address [address] [place] [address] Care Team Providers Care Fraud Investigator Name Role Phone Unavailable Primary Care Provider Unavailabl e Encounter Details Date Type Department Care Team (Late st Contact Info) Description 09/14/2019 Lab Requisition [facility] [address] [place] [address] Endy Trinh MD Social History Tobacco Use Types Packs/Day Years Used Date Smoking Tobacco: Former Smokeless Tobacco: Never Alcohol Use Standard Drinks/Week Comments No 0 (1 standard drink = 0.6 oz pur e alcohol) Sex and Gender Information Value Date Recorded Sex Assigned at Not on file Legal Sex Male 5:30 PM REFRIGERATED NATIONAL TRUCK DRIVER Gender Identity Not on file Sexual Orientation Not on file documented as of this encounter Plan of Treatment Not on file documented as of this encounter Procedures Procedure Name Priority Date/Time Associated Diagnosis Comments SARS-COV-2 (COVID-19) IN HOUSE Routine 09/13/2019 5:00 PM CDT documented in this encounter Results * SARS-COV-2 (COVID-19) IN HOUSE (09/13/2019 5:00 PM CDT) COVID-19 PCR Not detected Not detected, Invalid 09/14/2019 8:38 PM CDT [facility] MICROBIOLOGY Microbiology SPECIMEN FROM NASOPHARYNGEAL STRUCTURE / Unknown Collection / Unknown 09/13/2019 5:00 PM CDT 09/14/2019 10:19 AM CDT Narrative [facility] MICROBIOLOGY - 09/14/2019 8:38 PM CDT This Real Time RT-PCR assay was developed and its performance characteristics determined by [facility]biology [facility]. This test has been authorized by the Food and Drug administration (FDA)under an Emergency Use Authorization (EUA). This test has been validated in accordance with the FDA's guidance document Policy for Diagnostic Testing in Laboratories Certified to perform High Complexity Testing under CLIA prior to Emergency Use Authorization for Coronavirus Disease-2019 during the Public Health Emergency issued on July 02, 2019. FDA independent review of this validation is pending. This test is only authorized for the duration of time the declaration that circumstances exist justifying the authorization of emergency use of in vitro diagnostic tests for detection of SARS-CoV-2 virus and/or diagnosis of COVID-19 infection under section 564(b)(1) of the Act, 21 U.S.C 360bbb-3 (b)(1), unless the authorization is terminated or revoked sooner. us Endy Trinh MD LAB - MICROBIOLOGY ORDERABL ES Final Result [facility] MICROBIOLOGY [address] [place] [address], [facility] [phone] documented in this encounter Visit Diagnoses Not on filedocumented in this encounter
--- OUTSIDE RECORDS SUMMARY | 2024-12-13 08:25 | XMS_ITS | Clinical Summary ---
Author Organization [facility] Address [address] [place] [address] Care Team Providers Care Middle School English Teacher Name Role Phone Unavailable Primary Care Provider Unavailabl e Source Comments [facility],non-owned Affiliates and Associated Physician Practices is amultiple site organization consisting of ambulatory clinics and hospital sitesin [place], [place], [place] and [place]. This disclosure is being madepursuant to the Care Everywhere program and may not contain all information available regarding this patient. Last updated 18.[facility] Allergies No known active allergies Medications * Be aware that medications may not be up to date on this document. Alwaysverify current medications with the patient. HYDROcodone-acet aminophen (NORCO) 5-325 MG tablet Take 1 tablet by mouth every 4 hours as needed for Pain 15 tablet 03/17/2017 Active ibuprofen (MOTRIN) 600 MG tablet Take 1 tablet by mouth every 6 hours as needed for Pain 20 tablet 03/17/2017 Active Social History Tobacco Use Types Packs/Day Years Used Date Smoking Tobacco: Former Smokeless Tobacco: Never Alcohol Use Standard Drinks/Week Comments No 0 (1 standard drink = 0.6 oz pur e alcohol) Sex and Gender Information Value Date Recorded Sex Assigned at Not on file Legal Sex Male 5:30 PM CUTTER INSPECTOR Gender Identity Not on file Sexual Orientation Not on file Last Filed Vital Signs Vital Sign Reading Time Taken Comments Blood Pressure 144/96 03/17/2017 8:10 PM CUTTER INSPECTOR Pulse 73 03/17/2017 8:10 PM CUTTER INSPECTOR Temperature 36.4 C (97.6 F) 03/17/2017 5:36 PM CUTTER INSPECTOR Respiratory Rate 22 03/17/2017 8:10 PM CUTTER INSPECTOR Oxygen Saturation 97% 03/17/2017 8:10 PM CUTTER INSPECTOR Inhaled Oxygen Concentration - - Weight 140.6 kg (310 lb) 03/17/2017 5:36 PM CUTTER INSPECTOR Height 172.7 cm (5' 8) 03/17/2017 5:36 PM CUTTER INSPECTOR Body Mass Index 47.14 03/17/2017 5:36 PM CUTTER INSPECTOR Plan of Treatment Health Maintenance Due Date Last Done Comments LIPID TESTING 1984 HIV SCREENING 12/06/1999 HEPATITIS C SCREENING 12/01/2002 DTAP/TDAP/TD VACCINES (1 - Tdap) 12/06/2003 HEPATITIS B VACCINE (1 of 3 - 19+ 3-dose series) 12/06/2003 HPV VACCINE (1 - 3-dose SCDM series) 12/06/2011 COVID-19 VACCINE (2023-2 5 season) 2024 DEPRESSION SCREENING 05/04/2024 INFLUENZA VACCINE (#1) 2025 ZOSTER VACCINE (1 of 2) 2034 HIB VACCINE Aged Out No longer eligi ble based on patient's age to complete this topic MENINGOCOCCAL (Group B) VACC INE SHARED DECISION-MAKING Aged Out No longer eligibl e based on patient's age to complete this topic MENINGOCOCCAL GROUPS A/C/Y/W VACCINE Aged Out No longer eligible b ased on patient's age to complete this topic PNEUMOCOCCAL VACCINE Aged Out No long er eligible based on patient's age to complete this topic [place] [address] [place] [address] [facility]
--- NOTE | 2024-12-13 08:27 | ED.URI ---
HPI - URI/Sore Throat General Chief Complaint: Upper Respiratory Infection Stated Complaint: poss sinus infection Time Seen by Provider: 12/13/24 08:27 Source: patient and RN notes reviewed Mode of arrival: ambulatory Limitations: no limitations History of Present Illness HPI Narrative: 39 y/o male presented for c/o nasal congestion, drainage and sinus pressure. Onset 10 days. Also reports scratchy throat and cough. Says mucous is thick green, and endorses subjective intermittent fever. Denies sob, wheezing, n/v/d. Using saline nasal spray and mucinex and Tylenol. MD elicited complaint: cough Related Data Home Medications ?Medication ?Instructions ?Recorded ?Confirmed ?Last Taken ?Type loratadine 10 mg tablet 10 mg PO DAILY 12/09/23 04/19/24 Unknown History omeprazole 40 mg capsule,delayed 40 mg PO DAILY 12/09/23 04/19/24 Unknown History release carvedilol 6.25 mg tablet mg 04/19/24 Unknown History allopurinol 100 mg tablet mg 12/13/24 Unknown History Allergies Allergy/AdvReac Type Severity Reaction Status Date / Time No Known Allergies Allergy Verified 06/30/24 14:11 Review of Systems Review of Systems: CONSTITUTIONAL: Endorses malaise, denies body aches, chills, sweats, fever EYES: Denies visual changes, redness, or discharge ENT: Reports rhinorrhea, congestion, sinus pain, otalgia, sore throat CARDIOVASCULAR: Denies chest pain, palpitations, edema RESPIRATORY: Reports cough, post nasal drainage. Denies dyspnea GASTROINTESTINAL: Denies abdominal pain, nausea, vomiting, diarrhea SKIN: Denies rash or itching NEUROLOGIC: Denies headache PMFSH Past Medical History Medical History Acquired lymphedema of lower extremity History of sinus problem GERD (gastroesophageal reflux disease) ADD (attention deficit disorder) Surgical History Surgical History History of appendectomy Family History Family History Mother Family history non-contributory Social History Social History Smoking status: Current every day smoker Tobacco type: e-cigarettes/vaping Additional smoking assessment comments: quit cigarettes 2010 smoked 16 years Alcohol intake: current Alcohol use details: social Substance use: unknown Gender identity (if verbalized by the patient): Male Exam Narrative: GENERAL: well-appearing, nontoxic no acute distress. EYES: conjunctivae clear ENT: Mucous membranes moist. Nasal congestion. TMs pearly beasley with dull light reflex bilaterally; no tragal tenderness. Oropharynx not erythematous without lesions or exudate, no drooling, no hoarseness, no trismus, uvula midline. No tripod positioning, muffled voice, soft palate or pharyngeal wall bulging NECK: Supple. No lymphadenopathy CHEST: Clear to auscultation, breath sounds equal. No wheezing, rhonchi, rales, or stridor. No respiratory distress, speaks in full sentences. HEART: Regular rate and rhythm. No murmur heard. SKIN: Warm, dry, no rash. NEURO: Alert and oriented x3. PSYCH: Normal mood and affect Course Course Emergency Course: Patient is aware of diagnosis, understands and agrees to treatment plan. Anticipatory guidance given. Patient agrees to follow-up as directed and is aware of reasons to seek care at the emergency department. Portions of this record may have been created with voice recognition software Level of Care: Express Care Visit Vital Signs Vital signs: Vital Signs Temperature 97.6 F 12/13/24 08:21 Pulse Rate 83 12/13/24 08:21 Respiratory Rate 16 12/13/24 08:21 Blood Pressure 142/93 H 12/13/24 08:21 Pulse Oximetry 100 12/13/24 08:21 Oxygen Delivery Room Air 12/13/24 08:21 Temperature 97.6 F 12/13/24 08:21 Pulse Rate 83 12/13/24 08:21 Respiratory Rate 16 12/13/24 08:21 Blood Pressure 142/93 H 12/13/24 08:21 Pulse Oximetry 100 12/13/24 08:21 Oxygen Delivery Room Air 12/13/24 08:21 reviewed MDM - URI/Sore Throat MDM Narrative Medical decision making narrative: Discussed physical exam findings c/w sinusitis. Reviewed RX. Advised supportive measures and signs/symptoms to go to the ER. Pt is appropriate for outpt treatment and f/u. Differential Diagnosis Differential diagnosis: Likely upper respiratory infection, sinusitis and viral infection Discharge Plan Discharge Clinical Impression: Sinusitis Patient Disposition: Home Condition: Stable Instructions: Antibiotic Form, Rhinosinusitis (ED) Additional Instructions: Take antibiotic as directed Recommendations: Flonase spray and Zyrtec (or Claritin/Kasandra) over the counter Cough syrup may cause drowsiness; avoid driving or take it at night time. Tylenol 1000mg every 8 hours as needed for pain Symptomatic treatment includes: rest, fluids, and increase humidity of the air at home. Follow up with your primary care provider in 1 week. Go to the ER for worsening symptoms or concerns. Patient Language: Sinhala Prescriptions: New amoxicillin-pot clavulanate 875-125 mg tablet 1 tablet PO Q12H 7 Days Qty: 14 0RF No Action omeprazole 40 mg capsule,delayed release(DR/EC) 40 mg PO DAILY loratadine 10 mg tablet 10 mg PO DAILY carvedilol 6.25 mg tablet allopurinol 100 mg tablet Follow-up/Referrals: Jah,RADHA Iyer [Primary Care Provider] - Stand Alone Forms: Work/School Release IP Time of Disposition: 08:34
== END 2024-12-13 08:41 | disposition home or self-care (01) ==
PROVIDERS: Emergency Provider Nurse Practitioner Family; PCP Physician Assistant
DX: J32.9 Chronic sinusitis, unspecified (principal); F17.290 Nicotine dependence, other tobacco product, uncomplicated; Z79.899 Other long term (current) drug therapy
CPT/HCPCS: 99213; G0463

== ENCOUNTER 2025-02-15 08:12 | Emergency (ER) | payer OTHER, SELFPAY ==
--- NOTE | ~2025-02-15 | XR_ITS ---
Examination: XR chest 2V Clinical History: cough 1 month with upper mid back pain Comparison: 04/19/2024 Technique: PA and Lateral Findings: Cardiomediastinal silhouette normal size and configuration. Lungs clear. No acute bony abnormality. IMPRESSION: 1. No acute cardiopulmonary findings. Reviewed, dictated and finalized at location R.
[2025-02-15 08:21] VITALS: BP 146/92; PULSE 88; RESP 16; TEMP 36.4; O2SAT 100
--- OUTSIDE RECORDS SUMMARY | 2025-02-15 08:22 | XMS_ITS | Clinical Summary ---
Author Organization [facility] [address] Address [address] [place] [address] Phone Care Team Providers Care Music Therapist [employer] Name Role Phone Shireen Tyson Primary Care [...] mg total) by mouth daily 30 capsule 4 Active carvediloL (COREG) 6.25 mg tablet [...] minutes Assessment & Plan (03/14/2022 2:47 PM HAT BINDER): Omeprazole 40 mg in the morning 30-60 minutes before a meal Consider Tonsillectomy if symptom do not improve with 50 pound weight loss LPR discussed and Handout provided Hypertrophy of tonsils 03/14/2022 Assessment & Plan (03/14/2022 2:47 PM HAT BINDER): Consider Tonsillectomy if symptom do not improve with 50 pound weight loss ADHD 08/19/2021 Diastolic dysfunction 11/19/2020 Morbid (severe) obesity due to excess calories 0 08/27/2019 Overview (08/19/2021): Last Assessment & Plan: Condition: stable Comorbids of elevated BMI >40% Follow up in: six months Snoring 09/08/2016 Encounters Date Type Department Care Team Description 11/24/2024 2:30 PM CDT Office Visit [facility] at [address] [address] Edgar Moreno NP Morbid (severe) [...] on file Legal Sex Male 7:52 PM HAT BINDER Gender Identity Male 01/13/2024 3:12 PM CDT Sexual Orientation Pansexual 01/13/2024 3: 12 PM CDT Obstetrics History Last Filed Vital Signs Vital Sign Reading Time Taken Comments Blood Pressure 124/77 11/24/2024 2:32 PM CDT Pulse 79 11/24/2024 2:32 PM CDT Temperature 36.1 C (96.9 F) 03/30/2023 10:36 AM HAT BINDER Respiratory Rate 18 11/24/2024 2:32 PM CDT [...] M series) 12/06/2011 Covid-19 Vaccine (3 - 2024-2 6 season) 2025 09/22/2020, 08/25/2020 Influenza Vaccine (#1) 2025 , 01/14/2022, 01/11/2021, Additional history exists DTaP/Tdap/Td Vaccine (7 - Td or Tdap) 11/17/2026 11/17/2016, 12/18/1989, 08/29/1986, Additional history exists Insurance Care Teams Music Therapist [employer] Relationship Specialty Start Date End Date Shireen Tyson PA PCP - General Neurosurgery 02/22/21
--- OUTSIDE RECORDS SUMMARY | 2025-02-15 08:22 | XMS_ITS | Encounter Summary ---
Author Organization [facility] Address [address] [place] [address] Phone Care Team Providers Care Orchid Hand Name Role Phone Virgil Yadav MD Primary Care Provider [phone] Shireen Tyson PAC Primary Care Pro vider Shalini Horta APRN, LEGAL BILLING ANALYST Unavailable [phone] Reason for Visit * Reason Comments Medication Refill Encounter Details Date Type Department Care Team (Late st Contact Info) Description 10/24/2020 Refill [facility] - Family Medicine [facility] [address] [place] [address] Shireen Tyson, [facility] [address] [place] [address] Medication Refill Social History Tobacco Use Types [...] 11/27/2025 4:00 PM CDT Office Visit [facility] - Pulmonology & Sleep Medicine - [place] [address] [place] [address] Shalini Horta APRN, LEGAL BILLING ANALYST [address] [address] documented as of this encounter Visit Diagnoses Not on filedocumented in this encounter Additional Health Concerns Infection Onset Date Last Indicated Resolved Time COVID - 19 06/12/2021 06/12/2021 07/02/2021 12:1 6 AM VETERINARY LIVESTOCK INSPECTOR COVID - 19 07/08/2021 07/08/2021 07/28/2021 12:1 6 AM CDT COVID - 19 08/28/2021 08/28/2021 09/17/2021 12:1 6 AM CDT COVID - 19 12/24/2021 12/24/2021 01/03/2022 12:1 6 AM CDT COVID - 19 Confirmed 12/24/2021 12/24/2021 022 12:16 AM CDT COVID - 19 02/25/2022 02/25/2022 03/07/2022 12:1 6 AM CDT COVID - 19 04/09/2022 04/11/2022 04/21/2022 12:1 6 AM VETERINARY LIVESTOCK INSPECTOR COVID - 19 05/19/2022 05/19/2022 05/29/2022 12:1 6 AM VETERINARY LIVESTOCK INSPECTOR Respiratory Rule Out - RPA 07/01/2022 07/01/2022 0 07/01/2022 2:25 PM VETERINARY LIVESTOCK INSPECTOR Respiratory Rule-Out 10/05/2023 10/05/2023 024 3:40 PM CDT COVID - 19 10/05/2023 10/05/2023 10/05/2023 3:39 PM CDT Respiratory Rule-Out 11/11/2023 11/11/2023 024 2:01 PM CDT COVID - 19 11/11/2023 11/11/2023 11/11/2023 1:57 PM CDT COVID - 19 Confirmed 11/11/2023 11/11/2023 024 12:16 AM CDT Assessment Noted Time PHQ-9 Depression Total Score: 0 05/23/19 21 11:00 AM VETERINARY LIVESTOCK INSPECTOR documented as of this encounter Care Teams Orchid Hand Relationship Specialty Start Date End Date Virgil Yadav MD [address] [facility] [address] [place] [address] PCP - General Family Medicine 04/23/15 10/25/20 Shireen Tyson PAC [address] [facility] [address] [place] [address] PCP - General Physician Custodial Worker 10/26/20 Shalini Horta APRN, LEGAL BILLING ANALYST [address]2 [facility] [address] [place] [address] Nurse Practitioner Advanced Practice Nurse 11/18/22 documented as of this encounter
--- OUTSIDE RECORDS SUMMARY | 2025-02-15 08:22 | XMS_ITS | Encounter Summary ---
Author Organization [facility] Address [address] [place] [address] Phone Care Team Providers Care Ultrasound Sonographer Name Role Phone Virgil Yadav MD Primary Care Provider Shireen Tyson PAC Primary Care Pro vider Shalini Horta APRN, TICKET TAKER FERRYBOAT Unavailable [phone] Reason for Visit * Reason Comments Medication Refill Encounter Details Date Type Department Care Team (Late st Contact Info) Description 10/16/2020 Refill [facility] - Family Medicine [facility] [address] [place] [address] Shireen Tyson, [facility] [address] [place] [address] Medication Refill Social History Tobacco Use Types [...] Dept 08/15/20 Office Visit Darshana Warren APN, TICKET TAKER FERRYBOAT [facility] [place] 08/01/20 Office Visit Darshana Warren APN, TICKET TAKER FERRYBOAT [facility] [place] 07/04/20 Office Visit Virgil Yadav MD [facility] [place] 05/23/20 Office Visit Ca Hill, PAC [facility] [place] 04/10/20 Office Visit Darshana Warren APN, TICKET TAKER FERRYBOAT [facility] [place] 02/20/20 Office Visit Shireen Tyson, PAC [facility] [place] 12/20/19 Office Visit Ca Hill, PAC [facility] [place] 08/05/20 Office Visit Shireen Tyson, PAC [facility] [place] Showing recent visits within past 365 days and meeting all other requirements Future Appointments Date Type Provider Dept 10/26/20 Appointment Shireen Tyson, PAC [facility] Showing future appointments within next 90 days and meeting all other requirements Passed - GFR on record in past 12 months GFR, EST. NONAFRICAN Date Value Ref Range Status 08/03/2020 >60 >=60 Final documented in this encounter Plan of Treatment Upcoming Encounters Date Type Department Care Team (Late st Contact Info) Description 11/27/2025 4:00 PM CDT [facility] - [place] [address] [place] [address] Shalini Horta APRN, TICKET TAKER FERRYBOAT [address] [address] documented as of this encounter Visit Diagnoses Not on filedocumented in this encounter Additional Health Concerns Infection Onset Date Last Indicated Resolved Time COVID - 19 06/12/2021 06/12/2021 07/02/2021 12:1 6 AM CORE WINDER MACHINE OPERATOR COVID - 19 07/08/2021 07/08/2021 07/28/2021 12:1 6 AM CDT COVID - 19 08/28/2021 08/28/2021 09/17/2021 12:1 6 AM CDT COVID - 19 12/24/2021 12/24/2021 01/03/2022 12:1 6 AM CDT COVID - 19 Confirmed 12/24/2021 12/24/2021 022 12:16 AM CDT COVID - 19 02/25/2022 02/25/2022 03/07/2022 12:1 6 AM CDT COVID - 19 04/09/2022 04/11/2022 04/21/2022 12:1 6 AM CORE WINDER MACHINE OPERATOR COVID - 19 05/19/2022 05/19/2022 05/29/2022 12:1 6 AM CORE WINDER MACHINE OPERATOR Respiratory Rule Out - RPA 07/01/2022 07/01/2022 0 07/01/2022 2:25 PM CORE WINDER MACHINE OPERATOR Respiratory Rule-Out 10/05/2023 10/05/2023 024 3:40 PM CDT COVID - 19 10/05/2023 10/05/2023 10/05/2023 3:39 PM CDT Respiratory Rule-Out 11/11/2023 11/11/2023 024 2:01 PM CDT COVID - 19 11/11/2023 11/11/2023 11/11/2023 1:57 PM CDT COVID - 19 Confirmed 11/11/2023 11/11/2023 024 12:16 AM CDT Assessment Noted Time PHQ-9 Depression Total Score: 0 05/23/19 11:00 AM CORE WINDER MACHINE OPERATOR documented as of this encounter Care Teams Ultrasound Sonographer Relationship Specialty Start Date End Date Virgil Yadav MD [address]2 [facility] [address] [place] [address] PCP - General Family Medicine 04/23/15 10/25/20 Shireen Tyson PAC [address]2 [facility] [address] [place] [address] PCP - General Physician Structural Steel Erection Supervisor 10/26/20 Shalini Horta APRN, TICKET TAKER FERRYBOAT [address]2 [facility] [address] [place] [address] Nurse Practitioner Advanced Practice Nurse 11/18/22 documented as of this encounter
--- OUTSIDE RECORDS SUMMARY | 2025-02-15 08:22 | XMS_ITS | Clinical Summary ---
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 Resolved Problems Problem Noted Date Diagnosed Date Resolved Date Daytime sleepiness 02/14/2021 5 Snoring 09/08/2016 11/28/2024 Overview (03/20/2022): [facility] Sleep center recommends weight loss, PPI, and tonsillectomy with ENT referral Encounters Date Type Department Care Team Description 01/04/2025 Refill [facility] - [place] [address] [place] [address] Shireen Tyson, GENARO Medication Refill 12/06/2024 11:15 AM CDT Office Visit [facility] - Family Medicine [facility] [address] [facility] [place] [address] Joycelyn Queen, UTILITIES MANAGER, PHYSICIAN [facility] U[facility]ENT C[facility] Abdominal discomfort (Primary Dx); Irregular bowel habits; Dark stools Discharge Disposition: Discharged to home or Selfcare 12/06/2024 Travel 11/30/2024 Travel 11/28/2024 4:00 PM CDT Office Visit [facility] - Pulmonology & Sleep Medicine [facility] [address] [place] [address] Shalini Horta APRN, MELVA JAIME (obstructive sleep apnea) (Primary Dx); Morbid obesity with BMI of 40.0-44.9, adult (HCC) Discharge Disposition: Discharged to home or Selfcare 11/28/2024 [facility]phone [facility] #[address] [place] [address] Shalini Horta APRN, MELVA 11/26/2024 10:50 AM CDT - 11/26/2024 11:59 PM CDT Hospital [facility] [address] [place] [address] Shireen Tyson, GENARO Discharge Disposition: Discharged to home or Selfcare 11/26/2024 Travel from Last 3 Months Immunizations Immunization [...] drink = 0.6 oz pur e alcohol) [facility] Utilities Answer Date Recorded In the past [...] often do you attend chur ch or shinto services? Never 08/15/2024 Do you belong to any clubs o r organizations such as religion groups, unions, fraternal or athletic groups, or [...] Recorded Total Score - Questions 1-9 0 /0 09/2024 [facility] [place] of Occupat ional Health - Occupational Stress [...] place to sleep or slept in a intermediate (including now)? No 10/05/2023 Housing Stability Vital Sign Answer Florin e Recorded In the last 12 months, was t here a time when you were not able to pay the mortgage or rent on time? Yes 08/15/2024 In the past 12 months, how m any times have you moved where you were living? 0 08/15/2024 At any time in the past 12 m [facility], were you homeless or living in a intermediate (including now)? No 08/15/2024 Education Answer Date [...] Medical Group - Pulmonology & Sleep Medicine [facility] [address] [place] [address] Shalini Horta APRN, PHYSICIAN [facility] [address] [address] Health Maintenance Due Date Last Done Comments [...] on patient's age to complete this topic Procedures Procedure Name Priority Date/Time Associated Diagnosis Comments O & P, TRAVEL HX OR IMMUNOCOMPROMISED , FECES, NOME OPE Routine 11/30/2024 7:38 AM CDT Gastrointestinal [...] OCCULT BLOOD, DIAGNOSTIC Routine 06/25/2021 3:44 PM PROMOTIONS OFFICER Bright red stool from Last 3 Months or Most Recently Relevant to Health Maintenance Results * O & P, TRAVEL HX OR IMMUNOCOMPROMISED, FECES, RUIZ OPE (11/30/2024 7:38 AM CDT) [facility] OPE, OVA AND PARASITE, MICROSCOPY, F SEE NOTE 12/07/2024 10:16 AM CDT [facility] [place] Comment: SOURCE: STOOL, STLP OVA AND PARASITE, MICROSCOPY, F FINAL No parasites seen. Cryptosporidium, Cyclospora, and microsporidia are not readily detected by this method. Single negative specimen does not rule out parasitic infection. Test Performed by: [facility] - [address] [address] Carbon Setter: Geraldine Curtis Ph.D.; CLIA# [id number] Stool Non-Phlebotomy Collection / Unknown 11/30/2024 7:38 AM CDT 11/30/2024 8:25 AM CDT Shireen Tyson [facility] SEND OUTS F inal Result [facility] US * CULTURE, STOOL (11/30/2024 7:38 AM CDT) CULTURE RESULTS NO SALMONELLA, SHIGELLA OR E COLI 0157 ISOLATED 12/02/2024 8:34 AM CDT [facility] CULTURE RESULTS NEGATIVE FOR CAMPYLOBACTER ANTIGEN 12/02/2024 8:34 AM CDT [facility] CULTURE RESULTS SHIGA TOXIN 1 AND SHIGA TOXIN 2 NOT DETECTED 12/02/2024 8:34 AM CDT [facility] CULTURE RESULTS Few Probable usual geetha for this specimen source 12/02/2024 8:34 AM CDT [facility] Culture STOOL SPECIMEN / Unknown Non-Phlebotomy Collection / Unknown 11/30/2024 7:38 AM CDT 11/30/2024 8:25 AM CDT Narrative [facility] - 12/02/2024 8:34 AM CDT Unless stated above as an isolate, no Salmonella, Shigella, E Coli O157, Aeromonas, or Pleisiomonas species isolated Shireen Tyson [facility] MICROBIOLOGY - GE NERAL ORDERABLES Final Result [facility] [address] [facility] [place] [address], * (ABNORMAL) LIPID PANEL (11/26/2024 11:18 AM CDT) CHOLESTEROL 157 <200 mg/dL 11/26/2024 11:52 AM CDT [facility] TRIGLYCERIDES 84 <150 mg/dL 11/26/2024 11:52 AM CDT [facility] HDL CHOLESTEROL 31(L) >40 mg/dL 11:52 AM CDT [facility] LDL 109 <130 mg/dL 11/26/2024 11:52 AM CDT [facility] VLDL 17 10 - 50 mg/dL 11/26/2024 11:52 AM CDT [facility] CHOL/HDL RATIO 5.1(H) 0.0 - 4.4 11/26/2024 11:52 AM CDT [facility] NON-HDL CHOLESTEROL 126 <130 mg/dL 11/26/2024 11:52 AM CDT [facility] IS THE PATIENT REQUIRED TO BE FASTING? Yes 11/26/2024 11:52 AM CDT [facility] HAS THE PATIENT BEEN FASTING? Yes 11/26/2024 11:52 AM CDT [facility] Blood Venipuncture / Unknown 11/26/2024 11:18 AM CDT 11/26/2024 11:25 AM CDT us Loree Gardner MD CHEMISTRY ORDERABLES Final Result [facility] [address] [place] [address] * US ABDOMEN COMPLETE (11/26/2024 11:15 AM [...] thickening or pericholecystic fluid. No positive sonographic Alpha sign reported. BILIARY: There is no intrahepatic [...] Dar Kirby M.D. RB: LORI Report ID: [id number] Reading Location: [id number] Procedure Note Dar Kirby MD - 2024 [...] thickening or pericholecystic fluid. No positive sonographic Alpha sign reported. BILIARY: There is no intrahepatic [...] Dar Kirby M.D. RB: LORI Report ID: [id number] Reading Location: [place] [address] IMPRESSION: Mild hepatomegaly with fatty infiltrative changes of the liver. Shireen Tyson PAC IMG US ORDERABLES Final Result * HEPATITIS C ANTIBODY (08/26/2021 1:58 PM CDT) [facility] hepatitis C antibody 0.10 <1 S/CO [facility] ARCH [id number] 08/26/2021 11:04 PM CDT [facility] Comment: Signal/Cutoff ratio < 0.79 is Nondetected Signal/Cutoff ratio 0.80-0.99 is Grayzone Signal/Cutoff ratio > 0.99 is Detected Supplemental assays are recommended if signal/cutoff ratio is >/=1.00. Signal/cutoff ratio result >/= 5.00 is 97% predictive of positivity for recombinant immunoblot assay (RIBA) and will be reported to the [place] Department of Public [facility] as required. Blood Venipuncture / Unknown 08/26/2021 1:58 PM CDT 08/26/2021 1:58 PM CDT Shireen LAM CHEMISTRY ORDERAB LES Final Result [facility] [address] [place] [address], [place] * (ABNORMAL) POCT STOOL, OCCULT BLOOD, DIAGNOSTIC (06/25/2021 3:44 PM PROMOTIONS OFFICER) OCCULT BLOOD, STOOL Positive(A) Negative, Other POC HEMOCULT CONTROL Observer Helper Pass 06/25/2021 3:44 PM PROMOTIONS OFFICER Darshana Warren APRN, CNP POINT OF CARE TEST ING (MANUAL) Final Result from Last 3 Months or Most Recently Relevant to Health Maintenance Insurance [place]ICA[place] Care Teams Art Framing Manager Relationship Specialty Start Date End Date Shireen Tyson, GENARO PCP - General Physician Production Supervisor Trainee 10/26/20 Shalini Horta APRN, CNP [address] [place] [address] Nurse Practitioner Advanced Practice Nurse 11/18/22
--- OUTSIDE RECORDS SUMMARY | 2025-02-15 08:22 | XMS_ITS | Clinical Summary ---
Author Organization [facility] [employer] Address [address] [place] [address] Care Team Providers Care Voice And Data Technician Name Role Phone Unavailable Primary Care Provider Unavailabl e Source Comments [facility] [employer],non-owned Affiliates and Associated Physician Practices is amultiple site organization consisting of ambulatory clinics and hospital sitesin [place], [place], [place]. This disclosure is being madepursuant to the Care Everywhere program and may not contain all information available regarding this patient. Last updated 18.[facility] [employer] Allergies No known active allergies Medications * [...] on file Legal Sex Male 5:30 PM SOLAR THERMAL TECHNICIAN Gender Identity Not on file Sexual Orientation Not on file Last Filed Vital Signs Vital Sign Reading Time Taken Comments Blood Pressure 144/96 03/17/2017 8:10 PM SOLAR THERMAL TECHNICIAN Pulse 73 03/17/2017 8:10 PM SOLAR THERMAL TECHNICIAN Temperature 36.4 C (97.6 F) 03/17/2017 5:36 PM SOLAR THERMAL TECHNICIAN Respiratory Rate 22 03/17/2017 8:10 PM SOLAR THERMAL TECHNICIAN Oxygen Saturation 97% 03/17/2017 8:10 PM SOLAR THERMAL TECHNICIAN Inhaled Oxygen Concentration - - Weight 140.6 kg (310 lb) 03/17/2017 5:36 PM SOLAR THERMAL TECHNICIAN Height 172.7 cm (5' 8) 03/17/2017 5:36 PM SOLAR THERMAL TECHNICIAN Body Mass Index 47.14 03/17/2017 5:36 PM SOLAR THERMAL TECHNICIAN Plan of Treatment Health Maintenance Due Date Last Done Comments LIPID TESTING 1985 HIV SCREENING 12/06/1999 HEPATITIS C SCREENING 12/01/2002 DTAP/TDAP/TD VACCINES (1 - Tdap) 12/06/2003 HEPATITIS B VACCINE (1 of 3 - 19+ 3-dose series) 12/06/2003 HPV VACCINE (1 - 3-dose SCDM series) 12/06/2011 DEPRESSION SCREENING 05/04/2024 COVID-19 VACCINE (2023-2 5 season) 2025 INFLUENZA VACCINE (#1) 2025 ZOSTER VACCINE (1 [...] patient's age to complete this topic [place] [address] [place] [address] [facility]
--- OUTSIDE RECORDS SUMMARY | 2025-02-15 08:22 | XMS_ITS | Encounter Summary ---
Author Organization [facility] Address [address] [place] [address] Care Team Providers Care National Van Truck Driver Name Role Phone Unavailable Primary Care Provider Unavailabl e Encounter Details Date Type Department Care Team (Late st Contact Info) Description 09/14/2019 Lab Requisition [facility] [address] [place] [id number] Endy Trinh MD Social History Tobacco Use Types Packs/Day Years Used Date Smoking Tobacco: Former Smokeless Tobacco: Never Alcohol Use Standard Drinks/Week Comments No 0 (1 standard drink = 0.6 oz pur e alcohol) Sex and Gender Information Value Date Recorded Sex Assigned at Not on file Legal Sex Male 5:30 PM ASSOCIATE PROFESSOR Gender Identity Not on file Sexual Orientation [...] Not detected, Invalid 09/14/2019 8:38 PM CDT [facility] Microbiology SPECIMEN FROM NASOPHARYNGEAL STRUCTURE / Unknown Collection / Unknown 09/13/2019 5:00 PM CDT 09/14/2019 10:19 AM CDT Narrative [facility] - 09/14/2019 8:38 PM CDT This Real Time RT-PCR assay was developed and its performance characteristics determined by [facility]. This test has been authorized [...] LAB - MICROBIOLOGY ORDERABL ES Final Result [facility] [address] [place] [address], [facility] [phone] documented in this encounter Visit Diagnoses Not on filedocumented in this encounter
--- NOTE | 2025-02-15 08:35 | ED_ITS ---
HPI - URI/Sore Throat General Chief Complaint: Upper Respiratory Infection Stated Complaint: Upper Back Pain/Cough Time Seen by Provider: 02/15/25 08:35 Source: patient, RN notes reviewed and old records reviewed Mode of arrival: ambulatory Limitations: no limitations History of Present Illness HPI Narrative: 39 year old male who presents to [facility] care with complaints of cough and upper mid back discomfort. Patient reports that he has had these symptoms for about a month and it isn't getting any better. Patient reports that he has chronic sinus problems and he takes daily Claritin and uses Flonase nasal spray and also uses some nasal saline. Patient reports that he has had expectoration of greenish tinged mucous. Patient reports that he has not had any injury to his upper back region, feels it is just sore from frequent cough. MD elicited complaint: cough, rhinorrhea, nasal congestion and other (upper back pain) Pertinent past history: other (chronic sinus problem) Onset (ago): month(s) (1) Pain scale (0-10): 3 Description of mucous: green Able to tolerate fluids by mouth: Yes Treatments prior to arrival: ibuprofen and other (Claritin, Flonase, nasal saline and some Mucinex) Related Data Home Medications ?Medication ?Instructions ?Recorded ?Confirmed ?Last Taken ?Type loratadine 10 mg tablet 10 mg PO DAILY 12/09/2304/03 Unknown History omeprazole 40 mg capsule,delayed 40 mg PO DAILY 04/19/24 Unknown History release carvedilol 6.25 mg tablet mg 04/19/24 Unknown History allopurinol 100 mg tablet mg 12/13/24 Unknown History Allergies Allergy/AdvReac Type Severity Reaction Status Date / Time No Known Allergies Allergy Verified 06/30/24 14:11 Review of Systems Review of Systems: CONSTITUTIONAL: Denies malaise, chills, sweats, or fever. EYES: Denies visual changes, redness, or discharge. ENT: Reports rhinorrhea, congestion, sinus pain, no otalgia and no sore throat. CARDIOVASCULAR: Denies chest pain, palpitations, or edema. RESPIRATORY: Reports frequent cough at times productive. Denies dyspnea. GASTROINTESTINAL: Denies abdominal pain, nausea, vomiting, diarrhea SKIN: Denies rash or itching. MUSCULOSKELETAL: Denies myalgia. NEUROLOGIC: Denies acute headache. All systems reviewed & are unremarkable except as noted in HPI and below PMFSH Past Medical History Medical History Acquired lymphedema of lower extremity History of sinus problem GERD (gastroesophageal reflux disease) ADD (attention deficit disorder) Surgical History Surgical History History of appendectomy Family History Family History Mother Family history non-contributory Social History Social History Smoking status: Current every day smoker Tobacco type: e-cigarettes/vaping Additional smoking assessment comments: quit cigarettes 2009 smoked 16 years Alcohol intake: current Alcohol use details: social Substance use: unknown Gender identity (if verbalized by the patient): Male Comments At time of signature, agree with nursing past medical, surgical, social and family history. There is no relevant family history pertinent to the presenting complaint Exam Narrative: GENERAL: Well-appearing, well-nourished obese, and in no acute distress. HEAD: Normocephalic EYES: PERRLA, conjunctivae clear ENT: Nares clear, turbinates edematous and erythematous, yellowish nasal discharge. Mucous membranes moist. TM pearly beasley with dull light reflex bilaterally; no tragal tenderness. Oropharynx erythematous without lesions. Tonsils not enlarged and without exudate, no drooling, no hoarseness, no trismus, uvula midline. post nasal drainage noted NECK: Supple. No lymphadenopathy CHEST: Clear to auscultation, breath sounds equal. No wheezing, rhonchi, rales, or stridor. No respiratory distress, speaks in full sentences.cough for one mouth duration productive at times with some upper back pain, no tachypnea or any retractions SAO2 100% on room air HEART: Regular rate and rhythm. No murmur heard. SKIN: Warm, dry, no rash. NEURO: Alert and oriented x3. PSYCH: Normal mood and affect Course Course Emergency Course: Patient is aware of diagnosis, understands and agrees to treatment plan.? Anticipatory guidance given.? Patient agrees to follow-up as directed and is aware of reasons to seek care at the emergency department. Portions of this record may have been created with voice recognition software Level of Care: Express Care Visit Vital Signs Vital signs: Vital Signs Temperature 36.4 C 02/15/25 08:21 Pulse Rate 88 02/15/25 08:21 Respiratory Rate 16 02/15/25 08:21 Blood Pressure 146/92 H 02/15/25 08:21 Pulse Oximetry 100 02/15/25 08:21 Oxygen Delivery Room Air 02/15/25 08:21 Temperature 36.4 C 02/15/25 08:21 Pulse Rate 88 02/15/25 08:21 Respiratory Rate 16 02/15/25 08:21 Blood Pressure 146/92 H 02/15/25 08:21 Pulse Oximetry 100 02/15/25 08:21 Oxygen Delivery Room Air 02/15/25 08:21 Reviewed MDM - URI/Sore Throat MDM Narrative Medical decision making narrative: Differential diagnosis considered: Decker virus, strep pharyngitis, allergic rhinitis, upper respiratory tract infection, sinusitis, rhinosinusitis, nasopharyngitis. viral pharyngitis, otitis media, otitis externa, pneumonia, bronchitis, viral cough syndrome, viral syndrome, and influenza.? Exam findings show no acute concerns or changes; patient is non-toxic appearing and is in no distress.? Patient is appropriate for outpatient treatment and follow-up. Differential Diagnosis Differential diagnosis: Likely upper respiratory infection, sinusitis, viral infection and other (acute cough) Medical Records Attestation: I reviewed the patient's medical records. Lab Data Attestation: I reviewed the patient's lab results. Imaging Data Attestation: I personally reviewed and interpreted this imaging study as follows: My impression: no acute cardiopulmonary findings Radiologist's impression: [address] [address] XRay Report Signed Patient: Emanuel Vela : 1985 MR#: [id number] Age: 39 Acct:[id number] Loc: [facility] ADM Date: 02/15/[address]: Ordering Physician: Maribel Barrios APRN Date of Service: 02/15/25 Procedure(s): XR chest 2V Accession Number(s): [id number] cc: Jah, Shireen GARCIA; Maribel Barrios APRN~ Examination: XR chest 2V Clinical History: cough 1 month with upper mid back pain Comparison: 04/19/2024 Technique: PA and Lateral Findings: Cardiomediastinal silhouette normal size and configuration. Lungs clear. No acute bony abnormality. IMPRESSION: 1. No acute cardiopulmonary findings. Reviewed, dictated and finalized at location R. Please be advised this is a medical document. It is intended for [id number] communication. It is written in medical language and may contain unfamiliar abbreviations or verbiage. Medical documents are intended to carry relevant information, facts as evident, and the clinical opinion of the practitioner at the time of the encounter. This report may have been done utilizing a voice recognition system. Attempts have been made to correct errors. However, there may be uncorrected grammatical, spelling, and recognition errors present. The file time of this note does not necessarily represent the time of service. Dictated By: Nazario Roberts MD 02/15/25 0855 Signed By: <Electronically signed by Nazario Roberts MD in OV> Critical Care Time Critical Care Time Critical Care Time: No Discharge Plan Discharge Clinical Impression: Cough in adult patient, Upper back pain Sinusitis Qualifiers: Sinusitis location: pansinusitis Chronicity: chronic Qualified Code(s): J32.4 - Chronic pansinusitis Patient Disposition: Home Condition: Stable Instructions: Sinusitis (ED), Back Pain (ED), Acute Cough (ED) Additional Instructions: Increase fluids especially juices and water [id number] cough and cold medicine of your choice for your symptoms Continue your daily Claritin and Flonase Steroids as directed--take with food heat to the face 20-30 minutes 4-6 times a day for pain Salt water gargles, throat lozenges or throat sprays as desired If your symptoms persist, change or worsen significantly before you can contact your personal physician then please, without delay, go to the emergency department for further evaluation. Follow-up with PCP in 7-10 days or sooner if needed Follow up with PCP soon in regards to your blood pressure which is elevated above threshold for referral. Blood pressure above 120/80 may indicate pre- hypertension. 146/92 Antibiotic as prescribed complete all doses Patient Language: Bulgarian Prescriptions: New prednisone 20 mg tablet 40 mg PO DAILY 5 Days Qty: 10 0RF azithromycin 250 mg tablet See Rx Instructions .ROUTE .COMPLEX Qty: 6 0RF Rx Instructions: For 250 mg dose pack: take 500 mg today (day 1), then 250 mg for 4 days (days 2-5) No Action omeprazole 40 mg capsule,delayed release(DR/EC) 40 mg PO DAILY loratadine 10 mg tablet 10 mg PO DAILY carvedilol 6.25 mg tablet allopurinol 100 mg tablet Follow-up/Referrals: Jah,RADHA Iyer [Primary Care Provider, Unknown] Stand Alone Forms: Work/School Release IP Time of Disposition: 09:03 Quality Simpson Coma Scale Eyes: Open Verbal: Oriented and Alert Motor: Follows Commands Simpson Coma Total Score: 15
== END 2025-02-15 09:12 | disposition home or self-care (01) ==
PROVIDERS: Emergency Provider Registered Nurse; PCP Physician Assistant
DX: R05.9 Cough, unspecified (principal); M54.6 Pain in thoracic spine; J32.4 Chronic pansinusitis; F17.290 Nicotine dependence, other tobacco product, uncomplicated; K21.9 Gastro-esophageal reflux disease without esophagitis
CPT/HCPCS: 71046; 99213; G0463